=== PATIENT | male | born 1990 | race Hispanic/Latino ===

== ENCOUNTER 2016-10-13 19:45 | Emergency (ER) | payer SELFPAY ==
[2016-10-13 19:57] VITALS: BMI 35.4
[2016-10-13 20:01] VITALS: RESP 18; TEMP 98.7
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
[2016-10-13] MEDS ORDERED: Rabies Immune Globulin 150 INTLU/ML VIAL IM ONE (20:25)
[2016-10-13] MEDS ORDERED: Rabies Vaccine 2.5 U VIAL IM ONE (20:27)
[2016-10-13] MEDS ORDERED: TDAP Vaccine 0.5 mL Syr IM ONE (20:28)
[2016-10-13] MEDS ORDERED: Amoxicillin-Clav 875-125 mg Tab PO STA (20:28)
[2016-10-13 22:22] VITALS: BP 127/74; PULSE 71; O2SAT 100
[2016-10-14 13:06] LABS: HEPATITIS B SURFACE AG NEGATIVE (NEGATIVE)
[2016-10-14 13:11] LABS: HEPATITIS A IGM NEGATIVE (NEGATIVE)
[2016-10-14 13:12] LABS: HEPATITIS B CORE AB NEGATIVE (NEGATIVE)
[2016-10-14 13:24] LABS: HEPATITIS C ANTIBODY NEGATIVE (NEGATIVE)
== END 2016-10-13 22:05 | disposition home or self-care (01) ==
LOC: ED 19:45
DX: S51.851A Open bite of right forearm, initial encounter (principal); W54.0XXA Bitten by dog, initial encounter; Y93.01 Activity, walking, marching and hiking; Y92.830 Public park as the place of occurrence of the external cause; Z23 Encounter for immunization

== ENCOUNTER 2017-07-10 16:02 | Inpatient (IN) | payer BC ==
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
[2017-07-10 16:26] VITALS: BMI 34.4
[2017-07-10 16:55] LABS: BASO # 0.03 K/mm3 (0.0-2.0); BASO % 0.3 % (0.0-3.0); EOS # 0.5 (0.0-0.7); EOS % 4.4 % (1.5-5.0); GRAN # 4.85 (1.4-6.5); GRAN % 45.9 % (50.0-68.0); HEMOGLOBIN 15.7 g/dL (14.0-18.0); LYMPH # 4.4 (1.2-3.4); LYMPH % 41.3 % (22.0-35.0); MEAN CELL VOLUME 96.2 fl (80.0-105.0); MEAN CORPUSCULAR HGB CONC 34.3 g/dl (31.0-37.0); MEAN PLATELET VOLUME 9.7 fl (7.0-11.0); MONO # 0.9 (0.1-0.6); MONO % 8.1 % (1.0-6.0); RBC 4.76 10^6/uL (3.5-6.1); RED CELL DISTRIBUTION WIDTH 12.7 % (11.5-14.5); WHITE BLOOD COUNT 10.6 10^3/ul (4.5-11.0)
[2017-07-10 17:14] LABS: ALB/GLOB RATIO 1.3 (1.1-1.8); ALBUMIN 4.7 g/dL (3.0-4.8); ALT/SGPT 51 U/L (7-56); AST/SGOT 36 U/L (17-59); BLOOD UREA NITROGEN 8 mg/dL (7-21); CALCIUM 9.6 mg/dL (8.4-10.5); GFR AFRICAN-AMERICAN > 60; GFR NON-AFRICAN AMERICAN > 60
[2017-07-10 17:16] LABS: ACETAMINOPHEN < 10.0 ug/ml (10.0-20.0); SALICYLATE < 1 mg/dL (2.0-20.0)
--- NOTE | 2017-07-10 17:41 | RAD ---
HISTORY: Overdose. COMPARISON: No prior. FINDINGS: LUNGS: No active pulmonary disease. PLEURA: No significant pleural effusion identified, no pneumothorax apparent. CARDIOVASCULAR: Normal. OSSEOUS STRUCTURES: No significant abnormalities. VISUALIZED UPPER ABDOMEN: Normal. OTHER FINDINGS: None. IMPRESSION: No active disease.
--- NOTE | 2017-07-10 19:18 | CARD ---
APPROVED REPORT EKG Measurement Heart [id number] <Conclusion> Normal sinus rhythm Incomplete right bundle branch block Borderline ECG
[2017-07-10] MEDS ORDERED: Sodium Chloride 0.9% 1,000 ML IV ONE (20:16)
[2017-07-10] MEDS ORDERED: Naloxone 0.4 mg/ml Inj (Adult) IVP STA ×3 (21:24→21:36)
[2017-07-10] MEDS ORDERED: Naloxone 0.4 mg/ml Inj (Adult) ONE (21:30)
[2017-07-10] MEDS ORDERED: Naloxone HCl 2mg/2ml syr IVP STA (21:42)
[2017-07-10] MEDS ORDERED: Succinylcholine 200 mg/10 ml Inj IV ONE (21:43)
[2017-07-10] MEDS ORDERED: Etomidate 20 mg/10ml Inj IV ONE (21:43)
[2017-07-10] MEDS ORDERED: Propofol 10 mg/ml 1,000 MG/100 ML VIAL ONE (21:49)
[2017-07-10] MEDS ORDERED: Etomidate 20 mg/10ml Inj IVP STA (21:51)
[2017-07-10] MEDS ORDERED: Succinylcholine 200 mg/10 ml Inj IV STA (21:52)
[2017-07-10] MEDS ORDERED: Propofol 10 mg/ml 1,000 MG/100 ML VIAL IV PRN (21:54)
[2017-07-10] MEDS ORDERED: Propofol 10 mg/ml Inj (20 ML) IVP ONE (21:54)
[2017-07-10 22:15] LABS: URINE BILIRUBIN NEGATIVE (NEGATIVE); URINE BLOOD NEGATIVE (NEGATIVE); URINE GLUCOSE (UA) NEGATIVE (NEGATIVE); URINE LEUKOCYTE ESTERASE TRACE Leu/uL (NEGATIVE); URINE PROTEIN NEGATIVE mg/dL (<30 mg/dL); URINE UROBILINOGEN 0.2 E.U./dL (<1 E.U./dL)
--- NOTE | 2017-07-10 22:17 | CP.PCM.CON ---
<Medina Latham - Last Filed: 07/10/17 22:59> History of Present Illness - History of Present Illness History of Present Illness: CC: Overdose Patient is a 26 y/o male with unknown past medical history brought in by ambulance due to medication overdose. Patient is currently intubated and sedated thus unable to obtain history, and family is currently not at the bed side. As per ER physician and nurse, patient was coherent and a&ox3 at presentation. Patient admitted to taking 5-10 pills of oxycodone, denied suicidal or homicidal ideation. As per ER chart, patient's mother stated patient has psych history and she though patient took multiple pills in attempt to commit suicidal. Patient was awaiting psych eval, when he started to deteriorate, requiring multiple doses of narcan. Patient was eventually intubated and sedated for airway protection. Unable to obtain ROS due to mental status. PMHx/PSHx/FMHx/Social/ home meds and allergy: all known due to mentation. Review of Systems - Review of Systems Systems not reviewed;Unavailable: Intubated Past Patient History - Infectious Disease Hx of Infectious Diseases: None - Tetanus Immunizations Tetanus Immunization: Unknown - Past Medical History & Family History Past Medical History?: Yes - Past Social History Smoking Status: Light Smoker < 10 Cigarettes Daily Home Situation {Lives}: With Family - CARDIAC Hx Cardiac Disorders: No - PULMONARY Hx Respiratory Disorders: No - NEUROLOGICAL Hx Neurological Disorder: No - HEENT Hx HEENT Problems: No - RENAL Hx Chronic Kidney Disease: No - ENDOCRINE/METABOLIC Hx Endocrine Disorders: No - HEMATOLOGICAL/ONCOLOGICAL Hx Blood Disorders: No - INTEGUMENTARY Hx Dermatological Problems: No - MUSCULOSKELETAL/RHEUMATOLOGICAL Hx Arthritis: Yes - GASTROINTESTINAL Hx Gastrointestinal Disorders: No - GENITOURINARY/GYNECOLOGICAL Hx Genitourinary Disorders: No - PSYCHIATRIC Hx Depression: No Hx Emotional Abuse: No Hx Physical Abuse: No Hx Substance Use: Yes (Pills) - SURGICAL HISTORY Hx Orthopedic Surgery: Yes (R ANKLE) - ANESTHESIA Hx Anesthesia: Yes Hx Anesthesia Reactions: No Hx Malignant Hyperthermia: No Meds Allergies/Adverse Reactions: Allergies Allergy/AdvReac Type Severity Reaction Status Date / Time clarithromycin [From Biaxin] Allergy ANAPHYLAXIS Verified 07/10/17 16:19 - Medications Medications: Current Medications Propofol (Diprivan) 1,000 mg in 100 mls @ 3.266 mls/hr IV .Q24H PRN; Protocol; 5 MCG/KG/MIN PRN Reason: TITRATE PER MD ORDER Last Admin: 07/10/17 22:00 Dose: 3.266 mls/hr Sodium Chloride (Sodium Chloride 0.9%) 100 mls @ 150 mls/hr IV .Q40M [facility] Pantoprazole Sodium (Protonix Inj) 40 mg IVP DAILY [facility] Physical Exam - Constitutional Appears: No Acute Distress, Older Than Stated Age - Head Exam Head Exam: ATRAUMATIC, NORMAL INSPECTION, NORMOCEPHALIC - Eye Exam Eye Exam: Normal appearance, PERRL. absent: Scleral icterus - ENT Exam ENT Exam: Mucous Membranes Moist Additional comments: + ETT - Neck Exam Neck exam: Positive for: Normal Inspection - Respiratory Exam Respiratory Exam: Clear to Auscultation Bilateral, NORMAL BREATHING PATTERN. absent: Rales, Rhonchi, Wheezes, Respiratory Distress, Stridor - Cardiovascular Exam Cardiovascular Exam: Tachycardia, REGULAR RHYTHM, RRR, +S1, +S2. absent: Gallop , JVD, Rubs, Systolic Murmur - GI/Abdominal Exam GI & Abdominal Exam: Normal Bowel Sounds, Soft. absent: Distended, Firm, Guarding, Rebound, Rigid, Tenderness - Extremities Exam Extremities exam: Positive for: normal inspection. Negative for: pedal edema, tenderness - Neurological Exam Additional comments: Intubated and sedated. - Skin Skin Exam: Abrasion, Dry, Warm Results - Vital Signs Recent Vital Signs: Last Vital Signs Temp 97.8 F 07/10/17 18:58 Pulse 112 H 07/10/17 18:58 Resp 14 07/10/17 18:58 BP 122/60 07/10/17 18:58 Pulse Ox 94 L 07/10/17 18:58 - Labs Result Diagrams: 07/10/17 16:15 07/10/17 16:15 - EKG Data EKG Interpreted by: Myself EKG shows normal: Sinus rhythm Rate: Tachycardia (with RBBB) Assessment & Plan - Assessment and Plan (Free Text) Assessment: 26 y/o with unknown past medical history presented s/p medications overdose, presumably oxycodone, requiring multiple doses of narcan. Patient was intubated and sedated for airway protection. Plan: Neuro: intubated and sedated for airway protection s/p presumably opioid overdose, s/p multiple doses of narcan. follow up with [facility] poison control to be contacted on propofol for sedation Psych- possible medication over dose in attempt to commit suicide. Patient doesn't need 1:1 at this time due to intubation/sedation status. psych is consulted pending urine tox screen Pulm: s/p intubated for airway protection pulm toileting, gi prophylaxis, head of bed above 35 degrees, protective lung ventilation strategies. Will obtain a stat abg and adjust vent setting prn. Cardac: no known cardiac history. Maintain MAP above 65%. ID: no signs of sepsis at this time. ua ordered. Renal: cpk normal, renal function normal. repeat CPK in the morning. Sarkar catheter in place due to immobility. IV maintenance Blood alcohol and etoh normal, urine drug screen pending. Endo: hyperglycemia- will add insulin sliding scale, and fingerstick q6. GI: npo for now protonix for gi prophylaxis Heme: h/h/ stable, will continue to monitor. 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 Patient seen, examined and case discussed with Dr Valencia. - Date & Time Date: 07/10/17 Time: 23:00 <Annie YOO,Jesus - Last Filed: 07/11/17 09:09> Meds - Medications Medications: Current Medications Albuterol/Ipratropium (Duoneb 3 Mg/0.5 Mg (3 Ml) Ud) 3 ml IH Q6H PRN PRN Reason: Shortness of Breath Dexamethasone (Decadron Inj) 4 mg IVP Q6 [facility] Propofol (Diprivan) 1,000 mg in 100 mls @ 3.266 mls/hr IV .Q24H PRN; Protocol; 5 MCG/KG/MIN PRN Reason: TITRATE PER MD ORDER Last Titration: 07/11/17 02:00 Dose: 5 mcg/kg/min, 3.266 mls/hr Sodium Chloride (Sodium Chloride 0.9%) 1,000 mls @ 150 mls/hr IV .Q6H40M [facility] Last Admin: 07/11/17 01:00 Dose: 150 mls/hr Dextrose (Dextrose 10% In Water) 500 mls @ 50 mls/hr IV .Q10H [facility] Last Admin: 07/11/17 07:34 Dose: 50 mls/hr Pantoprazole Sodium (Protonix Inj) 40 mg IVP DAILY [facility] Results - Vital Signs Recent Vital Signs: Last Vital Signs Temp 97.6 F 07/11/17 00:12 Pulse 74 07/11/17 06:00 Resp 16 07/11/17 03:48 BP 104/64 07/11/17 02:00 Pulse Ox 99 07/11/17 03:48 - Labs Result Diagrams: 07/11/17 06:05 07/11/17 06:05 Labs: Laboratory Results - last 24 hr 07/10/17 07/10/17 07/11/17 21:40 21:40 03:17 WBC RBC Hgb Hct MCV MCH MCHC RDW Plt Count MPV Gran % Lymph % (Auto) Kleberg % (Auto) Eos % (Auto) Baso % (Auto) Gran # Lymph # (Auto) Kleberg # (Auto) Eos # (Auto) Baso # (Auto) pCO2 37 pO2 116.0 H HCO3 21.4 ABG pH 7.37 ABG Total CO2 22.5 ABG O2 Saturation 99.3 H ABG O2 Content 16.3 ABG Base Excess -3.4 L ABG Hemoglobin 12.0 ABG Carboxyhemoglobin 2.8 H POC ABG HHb (Measured) 0.7 ABG Methemoglobin 1.0 ABG O2 Capacity 16.4 Hgb O2 Saturation 95.4 FiO2 40.0 Sodium Potassium Chloride Carbon Dioxide Anion Gap BUN Creatinine Est GFR ( Amer) Est GFR (Non-Af Amer) POC Glucose (mg/dL) Random Glucose Calcium Phosphorus Magnesium Total Bilirubin AST ALT Alkaline Phosphatase Total Creatine Kinase Total Protein Albumin Globulin Albumin/Globulin Ratio Urine Color Yellow Urine Appearance Clear Urine pH 6.0 Ur Specific Andes 1.010 Urine Protein Negative Urine Glucose (UA) Negative Urine Ketones Negative Urine Blood Negative Urine Nitrate Negative Urine Bilirubin Negative Urine Urobilinogen 0.2 Ur Leukocyte Esterase Trace H Urine RBC 0 - 2 Urine WBC 0 - 2 Ur Epithelial Cells 0 - 2 Urine Opiates Screen Negative Urine Methadone Screen Positive H Ur Barbiturates Screen Negative Ur Phencyclidine Scrn Negative Ur Amphetamines Screen Negative U Benzodiazepines Scrn Positive U Oth Cocaine Metabols Negative U Cannabinoids Screen Positive H 07/11/17 07/11/17 07/11/17 03:32 04:28 06:05 WBC 9.9 RBC 3.94 Hgb 12.8 L D Hct 37.9 L MCV 96.2 MCH 32.5 MCHC 33.8 RDW 12.9 Plt Count 228 MPV 9.5 Gran % 63.0 Lymph % (Auto) 25.6 Kleberg % (Auto) 9.3 H Eos % (Auto) 1.9 Baso % (Auto) 0.2 Gran # 6.20 Lymph # (Auto) 2.5 Kleberg # (Auto) 0.9 H Eos # (Auto) 0.2 Baso # (Auto) 0.02 pCO2 pO2 HCO3 ABG pH ABG Total CO2 ABG O2 Saturation ABG O2 Content ABG Base Excess ABG Hemoglobin ABG Carboxyhemoglobin POC ABG HHb (Measured) ABG Methemoglobin ABG O2 Capacity Hgb O2 Saturation FiO2 Sodium Potassium Chloride Carbon Dioxide Anion Gap BUN Creatinine Est GFR ( Amer) Est GFR (Non-Af Amer) POC Glucose (mg/dL) 63 L 98 Random Glucose Calcium Phosphorus Magnesium Total Bilirubin AST ALT Alkaline Phosphatase Total Creatine Kinase Total Protein Albumin Globulin Albumin/Globulin Ratio Urine Color Urine Appearance Urine pH Ur Specific Andes Urine Protein Urine Glucose (UA) Urine Ketones Urine Blood Urine Nitrate Urine Bilirubin Urine Urobilinogen Ur Leukocyte Esterase Urine RBC Urine WBC Ur Epithelial Cells Urine Opiates Screen Urine Methadone Screen Ur Barbiturates Screen Ur Phencyclidine Scrn Ur Amphetamines Screen U Benzodiazepines Scrn U Oth Cocaine Metabols U Cannabinoids Screen 07/11/17 06:05 WBC RBC Hgb Hct MCV MCH MCHC RDW Plt Count MPV Gran % Lymph % (Auto) Kleberg % (Auto) Eos % (Auto) Baso % (Auto) Gran # Lymph # (Auto) Kleberg # (Auto) Eos # (Auto) Baso # (Auto) pCO2 pO2 HCO3 ABG pH ABG Total CO2 ABG O2 Saturation ABG O2 Content ABG Base Excess ABG Hemoglobin ABG Carboxyhemoglobin POC ABG HHb (Measured) ABG Methemoglobin ABG O2 Capacity Hgb O2 Saturation FiO2 Sodium 138 Potassium 3.7 Chloride 107 Carbon Dioxide 23 Anion Gap 12 BUN 7 Creatinine 0.7 L Est GFR ( Amer) > 60 Est GFR (Non-Af Amer) > 60 POC Glucose (mg/dL) Random Glucose 64 L Calcium 8.4 Phosphorus 2.4 L Magnesium 1.9 Total Bilirubin 0.6 AST 26 ALT 40 Alkaline Phosphatase 57 Total Creatine Kinase 114 Total Protein 6.4 Albumin 3.4 Globulin 3.0 Albumin/Globulin Ratio 1.1 Urine Color Urine Appearance Urine pH Ur Specific And[place] Urine Protein Urine Glucose (UA) Urine Ketones Urine Blood Urine Nitrate Urine Bilirubin Urine Urobilinogen Ur Leukocyte Esterase Urine RBC Urine WBC Ur Epithelial Cells Urine Opiates Screen Urine Methadone Screen Ur Barbiturates Screen Ur Phencyclidine Scrn Ur Amphetamines Screen U Benzodiazepines Scrn U Oth Cocaine Metabols U Cannabinoids Screen Attending/Attestation - Attestation I have personally seen and examined this patient.: Yes I have fully participated in the care of the patient.: Yes I have reviewed all pertinent clinical information: Yes Notes (Text): -I agree with the above ICU consult note completed by the resident physician with the following additions and/or changes: -The patient is a 26 year old man with unknown past medical history who reportedly intentionally attempted to overdose on Methadone and was subsequently BIBA as a result. In the ED, the patient was requiring repeat doses of Narcan and ultimately was intubated for airway protection. Of note, details of history are limited and obtained from ED and RN notes. Aggressive IVF s will be started, urine drug screen, Acetaminophen and Salicylate levels will be obtained. A psych consult has also been placed. Once the patient is extubated , he will require 1:1 monitoring due to concerns for possible suicidal ideations. Critical Care Time Spent: 90-120 minutes
[2017-07-10 22:23] LABS: URINE APPEARANCE CLEAR (CLEAR); URINE COLOR YELLOW (YELLOW)
[2017-07-10 22:28] LABS: URINE EPITHELIAL CELLS 0 - 2 /hpf (0-5); URINE RBC 0 - 2 /hpf (0-2); URINE WBC 0 - 2 /hpf (0-6)
[2017-07-10 22:39] LABS: BARBITURATES, UR NEGATIVE (NEGATIVE); BENZODIAZEPINES, UR POSITIVE (NEGATIVE); OPIATES, UR NEGATIVE (NEGATIVE); PHENCYCLIDINE, UR NEGATIVE (NEGATIVE)
[2017-07-11] MEDS: Sodium Chloride 0.9% 1,000 ML IV SCH ×2 (01:00→15:12)
[2017-07-11 03:21] LABS: ARTERIAL BLOOD GAS HCO3 21.4 mmol/L (21-28); ARTERIAL BLOOD GAS O2 CAPACITY 16.4 mL/dl (16-24); ARTERIAL BLOOD GAS O2 CONTENT 16.3 ML/dl (15-23); ARTERIAL BLOOD GAS O2 SAT 99.3 % (95-98); ARTERIAL BLOOD GAS PCO2 37 mm/Hg (35-45); ARTERIAL BLOOD GAS PH 7.37 (7.35-7.45); ARTERIAL BLOOD GAS TCO2 22.5 mmol.L (22-28)
[2017-07-11] MEDS ORDERED: Dextrose 50% SYRINGE Inj (50 ml) IVP ONE (03:34)
[2017-07-11 06:48] LABS: BASO # 0.02 K/mm3 (0.0-2.0); BASO % 0.2 % (0.0-3.0); EOS # 0.2 (0.0-0.7); EOS % 1.9 % (1.5-5.0); GRAN # 6.2 (1.4-6.5); LYMPH # 2.5 (1.2-3.4); LYMPH % 25.6 % (22.0-35.0); MEAN CELL VOLUME 96.2 fl (80.0-105.0); MEAN CORPUSCULAR HEMOGLOBIN 32.5 pg (25.0-35.0); MEAN CORPUSCULAR HGB CONC 33.8 g/dl (31.0-37.0); MEAN PLATELET VOLUME 9.5 fl (7.0-11.0); MONO # 0.9 (0.1-0.6); MONO % 9.3 % (1.0-6.0); RBC 3.94 10^6/uL (3.5-6.1); RED CELL DISTRIBUTION WIDTH 12.9 % (11.5-14.5); WHITE BLOOD COUNT 9.9 10^3/ul (4.5-11.0)
[2017-07-11 07:12] LABS: ALB/GLOB RATIO 1.1 (1.1-1.8); ALBUMIN 3.4 g/dL (3.0-4.8); ALT/SGPT 40 U/L (7-56); AST/SGOT 26 U/L (17-59); BLOOD UREA NITROGEN 7 mg/dL (7-21); CALCIUM 8.4 mg/dL (8.4-10.5); GFR AFRICAN-AMERICAN > 60; GFR NON-AFRICAN AMERICAN > 60
[2017-07-11 07:27] LABS: HEMOGLOBIN 12.8 g/dL (14.0-18.0)
[2017-07-11] MEDS ORDERED: Insulin Reg-LOW-Coverage SC SCH (07:30)
--- NOTE | 2017-07-11 08:04 | RAD ---
HISTORY: post intubation COMPARISON: Frontal chest radiograph 07/10/2017. FINDINGS: Endotracheal tube is in place terminating approximately 5 cm above the ahmet in the plane of the trachea. LUNGS: No definitive infiltrate is appreciate however restrained motion degrades quality this exam somewhat. PLEURA: No significant pleural effusion identified, no pneumothorax apparent. CARDIOVASCULAR: Cardiac silhouette appears stable with no definite pulmonary venous congestion pattern appreciate this time. OSSEOUS STRUCTURES: No significant abnormalities. VISUALIZED UPPER ABDOMEN: Normal. OTHER FINDINGS: None. IMPRESSION: Interval endotracheal intubation, good position. No interval infiltrate pleural effusion or pneumothorax is appreciable bilaterally.
[2017-07-11] MEDS ORDERED: Albuterol-Ipratrop 3 mg / 0.5 (3 ml) UD IH PRN (08:36)
[2017-07-11] MEDS ORDERED: Albuterol-Ipratrop 3 mg / 0.5 (3 ml) UD IH STA (08:36)
[2017-07-11] MEDS ORDERED: Racepinephrine 2.25% Inhal Soln 0.5 ML UD IH ONE (08:39)
[2017-07-11] MEDS: Dexamethasone 4 mg/1 ml IVP SCH ×4 (09:17→23:22)
[2017-07-11 11:01] LABS: ARTERIAL BLOOD GAS HCO3 25.1 mmol/L (21-28); ARTERIAL BLOOD GAS O2 CONTENT 17.9 ML/dl (15-23); ARTERIAL BLOOD GAS O2 SAT 99.4 % (95-98); ARTERIAL BLOOD GAS PCO2 60 mm/Hg (35-45); ARTERIAL BLOOD GAS PH 7.23 (7.35-7.45); ARTERIAL BLOOD GAS TCO2 26.9 mmol.L (22-28)
--- NOTE | 2017-07-11 11:09 | CP.CCUPN ---
<Thaddeus Magallon - Last Filed: 07/11/17 11:10> CCU Subjective - Physician Review Subjective (Free Text): Patient seen and examined bedside. Patient was extubated and opening eyes and responding to questions appropriately. Still lethargic and drowsy. No acute issues overnight. No current complaints. 07/11/17 11:06 CCU Objective - Vital Signs / Intake & Output Intake and Output (Last 8hrs): Intake & Output 07/10/17 07/11/17 07/11/17 22:59 06:59 14:59 Intake Total 1072 Output Total 450 Balance 622 Weight 262 lb 2 oz Intake: IV 1072 Right Antecubital 1050 Output: Urine 450 2-way Urethral 450 Other: Voiding Method Indwelling Catheter - Physical Exam Head: Positive for: Atraumatic, Normocephalic Pupils: Positive for: PERRL Conjunctiva: Positive for: Normal Mouth: Positive for: Moist Mucous Membranes Pharnyx: Negative for: ERYTHEMA, EXUDATE, TONSILS ENLARGED Respiratory/Chest: Positive for: Clear to Auscultation, Good Air Exchange. Negative for: Respiratory Distress, Accessory Muscle Use Cardiovascular: Positive for: Regular Rate and Rhythm, Normal S1, S2. Negative for: Murmurs Abdomen: Negative for: Tenderness, Distention, Peritoneal Signs, Rebound, Guarding Upper Extremity: Positive for: Normal Inspection. Negative for: Cyanosis, Edema Lower Extremity: Positive for: Normal Inspection. Negative for: Edema Neurological: Positive for: Motor Func Grossly Intact, Normal Sensory Function, Other (lethargic, drowsy ) Skin: Positive for: Warm, Dry, Normal Color. Negative for: Rashes Psychiatric: Positive for: Alert, Oriented x 3, Normal Insight, Normal Concentration, Lethargic. Negative for: Anxious, Agitated, Suicidal Ideation, Homicidal Ideation, Delusional, Hallucinations - Medications Active Medications: Active Medications Generic Name Dose Route Start Last Admin Trade Name Freq PRN Reason Stop Dose Admin Albuterol/Ipratropium 3 ml 07/11/17 08:36 Duoneb 3 Mg/0.5 Mg (3 Ml) Ud IH Q6H PRN Shortness of Breath Dexamethasone 4 mg 07/11/17 12:00 07/11/17 09:17 Decadron Inj IVP 4 mg Q6 BENSON Administration Sodium Chloride 1,000 mls @ 150 mls/hr 07/10/17 22:30 07/11/17 01:00 Sodium Chloride 0.9% IV 150 mls/hr .Q6H40M BENSON Administration Dextrose 500 mls @ 100 mls/hr 07/11/17 09:15 Dextrose 10% In Water IV .Q5H BENSON Lactated Ringer's 1,000 mls @ 999 mls/hr 07/11/17 11:15 Lactated Ringer's IV .Q1H1M BENSON Pantoprazole Sodium 40 mg 07/11/17 10:00 07/11/17 09:33 Protonix Inj IVP 40 mg DAILY BENSON Administration - Patient Studies Lab Studies: Lab Studies 07/11/17 07/11/17 07/11/17 Range/Units 10:50 06:05 06:05 WBC 9.9 (4.5-11.0) 10^3/ul RBC 3.94 (3.5-6.1) 10^6/uL Hgb 12.8 L D (14.0-18.0) g/dL Hct 37.9 L (42.0-52.0) % MCV 96.2 (80.0-105.0) fl MCH 32.5 (25.0-35.0) pg MCHC 33.8 (31.0-37.0) g/dl RDW 12.9 (11.5-14.5) % Plt Count 228 (120.0-450.0) 10^3/uL MPV 9.5 (7.0-11.0) fl Gran % 63.0 (50.0-68.0) % Lymph % (Auto) 25.6 (22.0-35.0) % [place] % (Auto) 9.3 H (1.0-6.0) % Eos % (Auto) 1.9 (1.5-5.0) % Baso % (Auto) 0.2 (0.0-3.0) % Gran # 6.20 (1.4-6.5) Lymph # (Auto) 2.5 (1.2-3.4) [place] # (Auto) 0.9 H (0.1-0.6) Eos # (Auto) 0.2 (0.0-0.7) Baso # (Auto) 0.02 (0.0-2.0) K/mm3 pCO2 60 H (35-45) mm/Hg pO2 135.0 H (80-100) mm/Hg HCO3 25.1 (21-28) mmol/L ABG pH 7.23 L (7.35-7.45) ABG Total CO2 26.9 (22-28) mmol.L ABG O2 Saturation 99.4 H (95-98) % ABG O2 Content 17.9 (15-23) ML/dl ABG Base Excess -3.4 L (-2.0-3.0) mmol/L ABG Hemoglobin 13.0 (11.7-17.4) g/dL ABG Carboxyhemoglobin 2.1 H (0.5-1.5) % POC ABG HHb (Measured) 0.6 (0-5) % ABG Methemoglobin 0.4 (0.0-3.0) % ABG O2 Capacity 18.0 (16-24) mL/dl Hgb O2 Saturation 96.9 (95.0-98.0) % FiO2 60.0 % Sodium 138 (132-148) mmol/L Potassium 3.7 (3.6-5.0) mmol/L Chloride 107 (98-107) mmol/L Carbon Dioxide 23 (21-33) mmol/L Anion Gap 12 (10-20) BUN 7 (7-21) mg/dL Creatinine 0.7 L (0.8-1.5) mg/dl Est GFR ( Amer) > 60 Est GFR (Non-Af Amer) > 60 POC Glucose (mg/dL) (65-110) mg/dL Random Glucose 64 L (70-110) mg/dL Calcium 8.4 (8.4-10.5) mg/dL Phosphorus 2.4 L (2.5-4.5) mg/dL Magnesium 1.9 (1.7-2.2) mg/dL Total Bilirubin 0.6 (0.2-1.3) mg/dL AST 26 (17-59) U/L ALT 40 (7-56) U/L Alkaline Phosphatase 57 (38-126) U/L Total Creatine Kinase 114 (35-230) U/L Total Protein 6.4 (5.8-8.3) g/dL Albumin 3.4 (3.0-4.8) g/dL Globulin 3.0 gm/dL Albumin/Globulin Ratio 1.1 (1.1-1.8) Urine Color (YELLOW) Urine Appearance (CLEAR) Urine pH (4.7-8.0) Ur Specific [place] (1.005-1.035) Urine Protein (<30 mg/dL) mg/dL Urine Glucose (UA) (NEGATIVE) mg/dL Urine Ketones (NEGATIVE) mg/dL Urine Blood (NEGATIVE) Urine Nitrate (NEGATIVE) Urine Bilirubin (NEGATIVE) Urine Urobilinogen (<1 E.U./dL) E.U./dL Ur Leukocyte Esterase (NEGATIVE) Portia/uL Urine RBC (0-2) /hpf Urine WBC (0-6) /hpf Ur Epithelial Cells (0-5) /hpf Urine Opiates Screen (NEGATIVE) Urine Methadone Screen (NEGATIVE) Ur Barbiturates Screen (NEGATIVE) Ur Phencyclidine Scrn (NEGATIVE) Ur Amphetamines Screen (NEGATIVE) U Benzodiazepines Scrn (NEGATIVE) U Oth Cocaine Metabols (NEGATIVE) U Cannabinoids Screen (NEGATIVE) 07/11/17 07/11/17 07/11/17 Range/Units 04:28 03:32 03:17 WBC (4.5-11.0) 10^3/ul RBC (3.5-6.1) 10^6/uL Hgb (14.0-18.0) g/dL Hct (42.0-52.0) % MCV (80.0-105.0) fl MCH (25.0-35.0) pg MCHC (31.0-37.0) g/dl RDW (11.5-14.5) % Plt Count (120.0-450.0) 10^3/uL MPV (7.0-11.0) fl Gran % (50.0-68.0) % Lymph % (Auto) (22.0-35.0) % [place] % (Auto) (1.0-6.0) % Eos % (Auto) (1.5-5.0) % Baso % (Auto) (0.0-3.0) % Gran # (1.4-6.5) Lymph # (Auto) (1.2-3.4) [place] # (Auto) (0.1-0.6) Eos # (Auto) (0.0-0.7) Baso # (Auto) (0.0-2.0) K/mm3 pCO2 37 (35-45) mm/Hg pO2 116.0 H (80-100) mm/Hg HCO3 21.4 (21-28) mmol/L ABG pH 7.37 (7.35-7.45) ABG Total CO2 22.5 (22-28) mmol.L ABG O2 Saturation 99.3 H (95-98) % ABG O2 Content 16.3 (15-23) ML/dl ABG Base Excess -3.4 L (-2.0-3.0) mmol/L ABG Hemoglobin 12.0 (11.7-17.4) g/dL ABG Carboxyhemoglobin 2.8 H (0.5-1.5) % POC ABG HHb (Measured) 0.7 (0-5) % ABG Methemoglobin 1.0 (0.0-3.0) % ABG O2 Capacity 16.4 (16-24) mL/dl Hgb O2 Saturation 95.4 (95.0-98.0) % FiO2 40.0 % Sodium (132-148) mmol/L Potassium (3.6-5.0) mmol/L Chloride (98-107) mmol/L Carbon Dioxide (21-33) mmol/L Anion Gap (10-20) BUN (7-21) mg/dL Creatinine (0.8-1.5) mg/dl Est GFR ( Amer) Est GFR (Non-Af Amer) POC Glucose (mg/dL) 98 63 L (65-110) mg/dL Random Glucose (70-110) mg/dL Calcium (8.4-10.5) mg/dL Phosphorus (2.5-4.5) mg/dL Magnesium (1.7-2.2) mg/dL Total Bilirubin (0.2-1.3) mg/dL AST (17-59) U/L ALT (7-56) U/L Alkaline Phosphatase (38-126) U/L Total Creatine Kinase (35-230) U/L Total Protein (5.8-8.3) g/dL Albumin (3.0-4.8) g/dL Globulin gm/dL Albumin/Globulin Ratio (1.1-1.8) Urine Color (YELLOW) Urine Appearance (CLEAR) Urine pH (4.7-8.0) Ur Specific [place] (1.005-1.035) Urine Protein (<30 mg/dL) mg/dL Urine Glucose (UA) (NEGATIVE) mg/dL Urine Ketones (NEGATIVE) mg/dL Urine Blood (NEGATIVE) Urine Nitrate (NEGATIVE) Urine Bilirubin (NEGATIVE) Urine Urobilinogen (<1 E.U./dL) E.U./dL Ur Leukocyte Esterase (NEGATIVE) Portia/uL Urine RBC (0-2) /hpf Urine WBC (0-6) /hpf Ur Epithelial Cells (0-5) /hpf Urine Opiates Screen (NEGATIVE) Urine Methadone Screen (NEGATIVE) Ur Barbiturates Screen (NEGATIVE) Ur Phencyclidine Scrn (NEGATIVE) Ur Amphetamines Screen (NEGATIVE) U Benzodiazepines Scrn (NEGATIVE) U Oth Cocaine Metabols (NEGATIVE) U Cannabinoids Screen (NEGATIVE) 07/10/17 07/10/17 Range/Units 21:40 21:40 WBC (4.5-11.0) 10^3/ul RBC (3.5-6.1) 10^6/uL Hgb (14.0-18.0) g/dL Hct (42.0-52.0) % MCV (80.0-105.0) fl MCH (25.0-35.0) pg MCHC (31.0-37.0) g/dl RDW (11.5-14.5) % Plt Count (120.0-450.0) 10^3/uL MPV (7.0-11.0) fl Gran % (50.0-68.0) % Lymph % (Auto) (22.0-35.0) % [place] % (Auto) (1.0-6.0) % Eos % (Auto) (1.5-5.0) % Baso % (Auto) (0.0-3.0) % Gran # (1.4-6.5) Lymph # (Auto) (1.2-3.4) [place] # (Auto) (0.1-0.6) Eos # (Auto) (0.0-0.7) Baso # (Auto) (0.0-2.0) K/mm3 pCO2 (35-45) mm/Hg pO2 (80-100) mm/Hg HCO3 (21-28) mmol/L ABG pH (7.35-7.45) ABG Total CO2 (22-28) mmol.L ABG O2 Saturation (95-98) % ABG O2 Content (15-23) ML/dl ABG Base Excess (-2.0-3.0) mmol/L ABG Hemoglobin (11.7-17.4) g/dL ABG Carboxyhemoglobin (0.5-1.5) % POC ABG HHb (Measured) (0-5) % ABG Methemoglobin (0.0-3.0) % ABG O2 Capacity (16-24) mL/dl Hgb O2 Saturation (95.0-98.0) % FiO2 % Sodium (132-148) mmol/L Potassium (3.6-5.0) mmol/L Chloride (98-107) mmol/L Carbon Dioxide (21-33) mmol/L Anion Gap (10-20) BUN (7-21) mg/dL Creatinine (0.8-1.5) mg/dl Est GFR ( Amer) Est GFR (Non-Af Amer) POC Glucose (mg/dL) (65-110) mg/dL Random Glucose (70-110) mg/dL Calcium (8.4-10.5) mg/dL Phosphorus (2.5-4.5) mg/dL Magnesium (1.7-2.2) mg/dL Total Bilirubin (0.2-1.3) mg/dL AST (17-59) U/L ALT (7-56) U/L Alkaline Phosphatase (38-126) U/L Total Creatine Kinase (35-230) U/L Total Protein (5.8-8.3) g/dL Albumin (3.0-4.8) g/dL Globulin gm/dL Albumin/Globulin Ratio (1.1-1.8) Urine Color Yellow (YELLOW) Urine Appearance Clear (CLEAR) Urine pH 6.0 (4.7-8.0) Ur Specific [place] 1.010 (1.005-1.035) Urine Protein Negative (<30 mg/dL) mg/dL Urine Glucose (UA) Negative (NEGATIVE) mg/dL Urine Ketones Negative (NEGATIVE) mg/dL Urine Blood Negative (NEGATIVE) Urine Nitrate Negative (NEGATIVE) Urine Bilirubin Negative (NEGATIVE) Urine Urobilinogen 0.2 (<1 E.U./dL) E.U./dL Ur Leukocyte Esterase Trace H (NEGATIVE) Portia/uL Urine RBC 0 - 2 (0-2) /hpf Urine WBC 0 - 2 (0-6) /hpf Ur Epithelial Cells 0 - 2 (0-5) /hpf Urine Opiates Screen Negative (NEGATIVE) Urine Methadone Screen Positive H (NEGATIVE) Ur Barbiturates Screen Negative (NEGATIVE) Ur Phencyclidine Scrn Negative (NEGATIVE) Ur Amphetamines Screen Negative (NEGATIVE) U Benzodiazepines Scrn Positive (NEGATIVE) U Oth Cocaine Metabols Negative (NEGATIVE) U Cannabinoids Screen Positive H (NEGATIVE) Laboratory Results - last 24 hr 07/10/17 07/10/17 07/11/17 21:40 21:40 03:17 WBC RBC Hgb Hct MCV MCH MCHC RDW Plt Count MPV Gran % Lymph % (Auto) [place] % (Auto) Eos % (Auto) Baso % (Auto) Gran # Lymph # (Auto) [place] # (Auto) Eos # (Auto) Baso # (Auto) pCO2 37 pO2 116.0 H HCO3 21.4 ABG pH 7.37 ABG Total CO2 22.5 ABG O2 Saturation 99.3 H ABG O2 Content 16.3 ABG Base Excess -3.4 L ABG Hemoglobin 12.0 ABG Carboxyhemoglobin 2.8 H POC ABG HHb (Measured) 0.7 ABG Methemoglobin 1.0 ABG O2 Capacity 16.4 Hgb O2 Saturation 95.4 FiO2 40.0 Sodium Potassium Chloride Carbon Dioxide Anion Gap BUN Creatinine Est GFR ( Amer) Est GFR (Non-Af Amer) POC Glucose (mg/dL) Random Glucose Calcium Phosphorus Magnesium Total Bilirubin AST ALT Alkaline Phosphatase Total Creatine Kinase Total Protein Albumin Globulin Albumin/Globulin Ratio Urine Color Yellow Urine Appearance Clear Urine pH 6.0 Ur Specific [place] 1.010 Urine Protein Negative Urine Glucose (UA) Negative Urine Ketones Negative Urine Blood Negative Urine Nitrate Negative Urine Bilirubin Negative Urine Urobilinogen 0.2 Ur Leukocyte Esterase Trace H Urine RBC 0 - 2 Urine WBC 0 - 2 Ur Epithelial Cells 0 - 2 Urine Opiates Screen Negative Urine Methadone Screen Positive H Ur Barbiturates Screen Negative Ur Phencyclidine Scrn Negative Ur Amphetamines Screen Negative U Benzodiazepines Scrn Positive U Oth Cocaine Metabols Negative U Cannabinoids Screen Positive H 07/11/17 07/11/17 07/11/17 03:32 04:28 06:05 WBC 9.9 RBC 3.94 Hgb 12.8 L D Hct 37.9 L MCV 96.2 MCH 32.5 MCHC 33.8 RDW 12.9 Plt Count 228 MPV 9.5 Gran % 63.0 Lymph % (Auto) 25.6 [place] % (Auto) 9.3 H Eos % (Auto) 1.9 Baso % (Auto) 0.2 Gran # 6.20 Lymph # (Auto) 2.5 [place] # (Auto) 0.9 H Eos # (Auto) 0.2 Baso # (Auto) 0.02 pCO2 pO2 HCO3 ABG pH ABG Total CO2 ABG O2 Saturation ABG O2 Content ABG Base Excess ABG Hemoglobin ABG Carboxyhemoglobin POC ABG HHb (Measured) ABG Methemoglobin ABG O2 Capacity Hgb O2 Saturation FiO2 Sodium Potassium Chloride Carbon Dioxide Anion Gap BUN Creatinine Est GFR ( Amer) Est GFR (Non-Af Amer) POC Glucose (mg/dL) 63 L 98 Random Glucose Calcium Phosphorus Magnesium Total Bilirubin AST ALT Alkaline Phosphatase Total Creatine Kinase Total Protein Albumin Globulin Albumin/Globulin Ratio Urine Color Urine Appearance Urine pH Ur Specific [place] Urine Protein Urine Glucose (UA) Urine Ketones Urine Blood Urine Nitrate Urine Bilirubin Urine Urobilinogen Ur Leukocyte Esterase Urine RBC Urine WBC Ur Epithelial Cells Urine Opiates Screen Urine Methadone Screen Ur Barbiturates Screen Ur Phencyclidine Scrn Ur Amphetamines Screen U Benzodiazepines Scrn U Oth Cocaine Metabols U Cannabinoids Screen 07/11/17 07/11/17 06:05 10:50 WBC RBC Hgb Hct MCV MCH MCHC RDW Plt Count MPV Gran % Lymph % (Auto) [place] % (Auto) Eos % (Auto) Baso % (Auto) Gran # Lymph # (Auto) [place] # (Auto) Eos # (Auto) Baso # (Auto) pCO2 60 H pO2 135.0 H HCO3 25.1 ABG pH 7.23 L ABG Total CO2 26.9 ABG O2 Saturation 99.4 H ABG O2 Content 17.9 ABG Base Excess -3.4 L ABG Hemoglobin 13.0 ABG Carboxyhemoglobin 2.1 H POC ABG HHb (Measured) 0.6 ABG Methemoglobin 0.4 ABG O2 Capacity 18.0 Hgb O2 Saturation 96.9 FiO2 60.0 Sodium 138 Potassium 3.7 Chloride 107 Carbon Dioxide 23 Anion Gap 12 BUN 7 Creatinine 0.7 L Est GFR ( Amer) > 60 Est GFR (Non-Af Amer) > 60 POC Glucose (mg/dL) Random Glucose 64 L Calcium 8.4 Phosphorus 2.4 L Magnesium 1.9 Total Bilirubin 0.6 AST 26 ALT 40 Alkaline Phosphatase 57 Total Creatine Kinase 114 Total Protein 6.4 Albumin 3.4 Globulin 3.0 Albumin/Globulin Ratio 1.1 Urine Color Urine Appearance Urine pH Ur Specific [place] Urine Protein Urine Glucose (UA) Urine Ketones Urine Blood Urine Nitrate Urine Bilirubin Urine Urobilinogen Ur Leukocyte Esterase Urine RBC Urine WBC Ur Epithelial Cells Urine Opiates Screen Urine Methadone Screen Ur Barbiturates Screen Ur Phencyclidine Scrn Ur Amphetamines Screen U Benzodiazepines Scrn U Oth Cocaine Metabols U Cannabinoids Screen Fingerstick Blood Sugar Results: 72 Review of Systems - Cardiovascular Cardiovascular: absent: Chest Pain, Dyspnea - Respiratory Respiratory: absent: Cough, Dyspnea - Gastrointestinal Gastrointestinal: absent: Nausea, Vomiting Critical Care Progress Note - Nutrition Nutrition: Nutrition Category Date Time Status NPO Diet [DIET] Diets 07/10/17 Dinner Ordered Assessment/Plan - Assessment and Plan (Free Text) Assessment: 26 y/o with unknown past medical history presented s/p medications overdose, presumably oxycodone, requiring multiple doses of narcan. Patient was intubated and sedated for airway protection. Extubated this morning and place don BIPAP. Plan: Neuro: lethargic, drowsy Alert, oriented x3 Psych possible medication over dose in attempt to commit suicide. 1:1psych is consulted Pulm: BIPAP ABG maintain saturation >90% decadron ENT consulted Cardiac: no known cardiac history. Maintain MAP above 65%. ID: no signs of sepsis at this time Renal: monitor lytes replenish as needed LR fluids Endo: hypoglycemic Dextrose Fingersticks Q1 GI: npo for now protonix for gi prophylaxis Heme: h/h/ stable, will continue to monitor. DVT prophylaxis: amf mechanic compressive devices. <Basilio Harp - Last Filed: 07/11/17 12:34> CCU Objective - Vital Signs / Intake & Output Vital Signs (Last 4 hours): Vital Signs Pulse 07/11/17 10:00 87 Intake and Output (Last 8hrs): Intake & Output 07/10/17 07/11/17 07/11/17 22:59 06:59 14:59 Intake Total 1072 Output Total 450 Balance 622 Weight 262 lb 2 oz Intake: IV 1072 Right Antecubital 1050 Output: Urine 450 2-way Urethral 450 Other: Voiding Method Indwelling Catheter - Medications Active Medications: Active Medications Generic Name Dose Route Start Last Admin Trade Name Freq PRN Reason Stop Dose Admin Albuterol/Ipratropium 3 ml 07/11/17 08:36 Duoneb 3 Mg/0.5 Mg (3 Ml) Ud IH Q6H PRN Shortness of Breath Dexamethasone 4 mg 07/11/17 12:00 07/11/17 12:03 Decadron Inj IVP 4 mg Q6 BENSON Administration Sodium Chloride 1,000 mls @ 150 mls/hr 07/10/17 22:30 07/11/17 01:00 Sodium Chloride 0.9% IV 150 mls/hr .Q6H40M BENSON Administration Dextrose 500 mls @ 100 mls/hr 07/11/17 09:15 Dextrose 10% In Water IV .Q5H BENSON Pantoprazole Sodium 40 mg 07/11/17 10:00 07/11/17 09:33 Protonix Inj IVP 40 mg DAILY BENSON Administration - Patient Studies Lab Studies: Lab Studies 07/11/17 07/11/17 07/11/17 Range/Units 11:53 11:11 10:50 WBC (4.5-11.0) 10^3/ul RBC (3.5-6.1) 10^6/uL Hgb (14.0-18.0) g/dL Hct (42.0-52.0) % MCV (80.0-105.0) fl MCH (25.0-35.0) pg MCHC (31.0-37.0) g/dl RDW (11.5-14.5) % Plt Count (120.0-450.0) 10^3/uL MPV (7.0-11.0) fl Gran % (50.0-68.0) % Lymph % (Auto) (22.0-35.0) % [place] % (Auto) (1.0-6.0) % Eos % (Auto) (1.5-5.0) % Baso % (Auto) (0.0-3.0) % Gran # (1.4-6.5) Lymph # (Auto) (1.2-3.4) [place] # (Auto) (0.1-0.6) Eos # (Auto) (0.0-0.7) Baso # (Auto) (0.0-2.0) K/mm3 pCO2 60 H (35-45) mm/Hg pO2 135.0 H (80-100) mm/Hg HCO3 25.1 (21-28) mmol/L ABG pH 7.23 L (7.35-7.45) ABG Total CO2 26.9 (22-28) mmol.L ABG O2 Saturation 99.4 H (95-98) % ABG O2 Content 17.9 (15-23) ML/dl ABG Base Excess -3.4 L (-2.0-3.0) mmol/L ABG Hemoglobin 13.0 (11.7-17.4) g/dL ABG Carboxyhemoglobin 2.1 H (0.5-1.5) % POC ABG HHb (Measured) 0.6 (0-5) % ABG Methemoglobin 0.4 (0.0-3.0) % ABG O2 Capacity 18.0 (16-24) mL/dl Hgb O2 Saturation 96.9 (95.0-98.0) % FiO2 60.0 % Sodium (132-148) mmol/L Potassium (3.6-5.0) mmol/L Chloride (98-107) mmol/L Carbon Dioxide (21-33) mmol/L Anion Gap (10-20) BUN (7-21) mg/dL Creatinine (0.8-1.5) mg/dl Est GFR ( Amer) Est GFR (Non-Af Amer) POC Glucose (mg/dL) 75 83 (65-110) mg/dL Random Glucose (70-110) mg/dL Calcium (8.4-10.5) mg/dL Phosphorus (2.5-4.5) mg/dL Magnesium (1.7-2.2) mg/dL Total Bilirubin (0.2-1.3) mg/dL AST (17-59) U/L ALT (7-56) U/L Alkaline Phosphatase (38-126) U/L Total Creatine Kinase (35-230) U/L Total Protein (5.8-8.3) g/dL Albumin (3.0-4.8) g/dL Globulin gm/dL Albumin/Globulin Ratio (1.1-1.8) Urine Color (YELLOW) Urine Appearance (CLEAR) Urine pH (4.7-8.0) Ur Specific [place] (1.005-1.035) Urine Protein (<30 mg/dL) mg/dL Urine Glucose (UA) (NEGATIVE) mg/dL Urine Ketones (NEGATIVE) mg/dL Urine Blood (NEGATIVE) Urine Nitrate (NEGATIVE) Urine Bilirubin (NEGATIVE) Urine Urobilinogen (<1 E.U./dL) E.U./dL Ur Leukocyte Esterase (NEGATIVE) Portia/uL Urine RBC (0-2) /hpf Urine WBC (0-6) /hpf Ur Epithelial Cells (0-5) /hpf Urine Opiates Screen (NEGATIVE) Urine Methadone Screen (NEGATIVE) Ur Barbiturates Screen (NEGATIVE) Ur Phencyclidine Scrn (NEGATIVE) Ur Amphetamines Screen (NEGATIVE) U Benzodiazepines Scrn (NEGATIVE) U Oth Cocaine Metabols (NEGATIVE) U Cannabinoids Screen (NEGATIVE) 07/11/17 07/11/17 07/11/17 Range/Units 10:22 08:45 07:25 WBC (4.5-11.0) 10^3/ul RBC (3.5-6.1) 10^6/uL Hgb (14.0-18.0) g/dL Hct (42.0-52.0) % MCV (80.0-105.0) fl MCH (25.0-35.0) pg MCHC (31.0-37.0) g/dl RDW (11.5-14.5) % Plt Count (120.0-450.0) 10^3/uL MPV (7.0-11.0) fl Gran % (50.0-68.0) % Lymph % (Auto) (22.0-35.0) % [place] % (Auto) (1.0-6.0) % Eos % (Auto) (1.5-5.0) % Baso % (Auto) (0.0-3.0) % Gran # (1.4-6.5) Lymph # (Auto) (1.2-3.4) [place] # (Auto) (0.1-0.6) Eos # (Auto) (0.0-0.7) Baso # (Auto) (0.0-2.0) K/mm3 pCO2 (35-45) mm/Hg pO2 (80-100) mm/Hg HCO3 (21-28) mmol/L ABG pH (7.35-7.45) ABG Total CO2 (22-28) mmol.L ABG O2 Saturation (95-98) % ABG O2 Content (15-23) ML/dl ABG Base Excess (-2.0-3.0) mmol/L ABG Hemoglobin (11.7-17.4) g/dL ABG Carboxyhemoglobin (0.5-1.5) % POC ABG HHb (Measured) (0-5) % ABG Methemoglobin (0.0-3.0) % ABG O2 Capacity (16-24) mL/dl Hgb O2 Saturation (95.0-98.0) % FiO2 % Sodium (132-148) mmol/L Potassium (3.6-5.0) mmol/L Chloride (98-107) mmol/L Carbon Dioxide (21-33) mmol/L Anion Gap (10-20) BUN (7-21) mg/dL Creatinine (0.8-1.5) mg/dl Est GFR ( Amer) Est GFR (Non-Af Amer) POC Glucose (mg/dL) 76 70 72 (65-110) mg/dL Random Glucose (70-110) mg/dL Calcium (8.4-10.5) mg/dL Phosphorus (2.5-4.5) mg/dL Magnesium (1.7-2.2) mg/dL Total Bilirubin (0.2-1.3) mg/dL AST (17-59) U/L ALT (7-56) U/L Alkaline Phosphatase (38-126) U/L Total Creatine Kinase (35-230) U/L Total Protein (5.8-8.3) g/dL Albumin (3.0-4.8) g/dL Globulin gm/dL Albumin/Globulin Ratio (1.1-1.8) Urine Color (YELLOW) Urine Appearance (CLEAR) Urine pH (4.7-8.0) Ur Specific [place] (1.005-1.035) Urine Protein (<30 mg/dL) mg/dL Urine Glucose (UA) (NEGATIVE) mg/dL Urine Ketones (NEGATIVE) mg/dL Urine Blood (NEGATIVE) Urine Nitrate (NEGATIVE) Urine Bilirubin (NEGATIVE) Urine Urobilinogen (<1 E.U./dL) E.U./dL Ur Leukocyte Esterase (NEGATIVE) [place]/uL Urine RBC (0-2) /hpf Urine WBC (0-6) /hpf Ur Epithelial Cells (0-5) /hpf Urine Opiates Screen (NEGATIVE) Urine Methadone Screen (NEGATIVE) Ur Barbiturates Screen (NEGATIVE) Ur Phencyclidine Scrn (NEGATIVE) Ur Amphetamines Screen (NEGATIVE) U Benzodiazepines Scrn (NEGATIVE) U Oth Cocaine Metabols (NEGATIVE) U Cannabinoids Screen (NEGATIVE) 07/11/17 07/11/17 07/11/17 Range/Units 06:57 06:05 06:05 WBC 9.9 (4.5-11.0) 10^3/ul RBC 3.94 (3.5-6.1) 10^6/uL Hgb 12.8 L D (14.0-18.0) g/dL Hct 37.9 L (42.0-52.0) % MCV 96.2 (80.0-105.0) fl MCH 32.5 (25.0-35.0) pg MCHC 33.8 (31.0-37.0) g/dl RDW 12.9 (11.5-14.5) % Plt Count 228 (120.0-450.0) 10^3/uL MPV 9.5 (7.0-11.0) fl Gran % 63.0 (50.0-68.0) % Lymph % (Auto) 25.6 (22.0-35.0) % [place] % (Auto) 9.3 H (1.0-6.0) % Eos % (Auto) 1.9 (1.5-5.0) % Baso % (Auto) 0.2 (0.0-3.0) % Gran # 6.20 (1.4-6.5) Lymph # (Auto) 2.5 (1.2-3.4) [place] # (Auto) 0.9 H (0.1-0.6) Eos # (Auto) 0.2 (0.0-0.7) Baso # (Auto) 0.02 (0.0-2.0) K/mm3 pCO2 (35-45) mm/Hg pO2 (80-100) mm/Hg HCO3 (21-28) mmol/L ABG pH (7.35-7.45) ABG Total CO2 (22-28) mmol.L ABG O2 Saturation (95-98) % ABG O2 Content (15-23) ML/dl ABG Base Excess (-2.0-3.0) mmol/L ABG Hemoglobin (11.7-17.4) g/dL ABG Carboxyhemoglobin (0.5-1.5) % POC ABG HHb (Measured) (0-5) % ABG Methemoglobin (0.0-3.0) % ABG O2 Capacity (16-24) mL/dl Hgb O2 Saturation (95.0-98.0) % FiO2 % Sodium 138 (132-148) mmol/L Potassium 3.7 (3.6-5.0) mmol/L Chloride 107 (98-107) mmol/L Carbon Dioxide 23 (21-33) mmol/L Anion Gap 12 (10-20) BUN 7 (7-21) mg/dL Creatinine 0.7 L (0.8-1.5) mg/dl Est GFR ( Amer) > 60 Est GFR (Non-Af Amer) > 60 POC Glucose (mg/dL) 53 L (65-110) mg/dL Random Glucose 64 L (70-110) mg/dL Calcium 8.4 (8.4-10.5) mg/dL Phosphorus 2.4 L (2.5-4.5) mg/dL Magnesium 1.9 (1.7-2.2) mg/dL Total Bilirubin 0.6 (0.2-1.3) mg/dL AST 26 (17-59) U/L ALT 40 (7-56) U/L Alkaline Phosphatase 57 (38-126) U/L Total Creatine Kinase 114 (35-230) U/L Total Protein 6.4 (5.8-8.3) g/dL Albumin 3.4 (3.0-4.8) g/dL Globulin 3.0 gm/dL Albumin/Globulin Ratio 1.1 (1.1-1.8) Urine Color (YELLOW) Urine Appearance (CLEAR) Urine pH (4.7-8.0) Ur Specific [place] (1.005-1.035) Urine Protein (<30 mg/dL) mg/dL Urine Glucose (UA) (NEGATIVE) mg/dL Urine Ketones (NEGATIVE) mg/dL Urine Blood (NEGATIVE) Urine Nitrate (NEGATIVE) Urine Bilirubin (NEGATIVE) Urine Urobilinogen (<1 E.U./dL) E.U./dL Ur Leukocyte Esterase (NEGATIVE) [place]/uL Urine RBC (0-2) /hpf Urine WBC (0-6) /hpf Ur Epithelial Cells (0-5) /hpf Urine Opiates Screen (NEGATIVE) Urine Methadone Screen (NEGATIVE) Ur Barbiturates Screen (NEGATIVE) Ur Phencyclidine Scrn (NEGATIVE) Ur Amphetamines Screen (NEGATIVE) U Benzodiazepines Scrn (NEGATIVE) U Oth Cocaine Metabols (NEGATIVE) U Cannabinoids Screen (NEGATIVE) 07/11/17 07/11/17 07/11/17 Range/Units 04:28 03:32 03:17 WBC (4.5-11.0) 10^3/ul RBC (3.5-6.1) 10^6/uL Hgb (14.0-18.0) g/dL Hct (42.0-52.0) % MCV (80.0-105.0) fl MCH (25.0-35.0) pg MCHC (31.0-37.0) g/dl RDW (11.5-14.5) % Plt Count (120.0-450.0) 10^3/uL MPV (7.0-11.0) fl Gran % (50.0-68.0) % Lymph % (Auto) (22.0-35.0) % [place] % (Auto) (1.0-6.0) % Eos % (Auto) (1.5-5.0) % Baso % (Auto) (0.0-3.0) % Gran # (1.4-6.5) Lymph # (Auto) (1.2-3.4) [place] # (Auto) (0.1-0.6) Eos # (Auto) (0.0-0.7) Baso # (Auto) (0.0-2.0) K/mm3 pCO2 37 (35-45) mm/Hg pO2 116.0 H (80-100) mm/Hg HCO3 21.4 (21-28) mmol/L ABG pH 7.37 (7.35-7.45) ABG Total CO2 22.5 (22-28) mmol.L ABG O2 Saturation 99.3 H (95-98) % ABG O2 Content 16.3 (15-23) ML/dl ABG Base Excess -3.4 L (-2.0-3.0) mmol/L ABG Hemoglobin 12.0 (11.7-17.4) g/dL ABG Carboxyhemoglobin 2.8 H (0.5-1.5) % POC ABG HHb (Measured) 0.7 (0-5) % ABG Methemoglobin 1.0 (0.0-3.0) % ABG O2 Capacity 16.4 (16-24) mL/dl Hgb O2 Saturation 95.4 (95.0-98.0) % FiO2 40.0 % Sodium (132-148) mmol/L Potassium (3.6-5.0) mmol/L Chloride (98-107) mmol/L Carbon Dioxide (21-33) mmol/L Anion Gap (10-20) BUN (7-21) mg/dL Creatinine (0.8-1.5) mg/dl Est GFR ( Amer) Est GFR (Non-Af Amer) POC Glucose (mg/dL) 98 63 L (65-110) mg/dL Random Glucose (70-110) mg/dL Calcium (8.4-10.5) mg/dL Phosphorus (2.5-4.5) mg/dL Magnesium (1.7-2.2) mg/dL Total Bilirubin (0.2-1.3) mg/dL AST (17-59) U/L ALT (7-56) U/L Alkaline Phosphatase (38-126) U/L Total Creatine Kinase (35-230) U/L Total Protein (5.8-8.3) g/dL Albumin (3.0-4.8) g/dL Globulin gm/dL Albumin/Globulin Ratio (1.1-1.8) Urine Color (YELLOW) Urine Appearance (CLEAR) Urine pH (4.7-8.0) Ur Specific [place] (1.005-1.035) Urine Protein (<30 mg/dL) mg/dL Urine Glucose (UA) (NEGATIVE) mg/dL Urine Ketones (NEGATIVE) mg/dL Urine Blood (NEGATIVE) Urine Nitrate (NEGATIVE) Urine Bilirubin (NEGATIVE) Urine Urobilinogen (<1 E.U./dL) E.U./dL Ur Leukocyte Esterase (NEGATIVE) [place]/uL Urine RBC (0-2) /hpf Urine WBC (0-6) /hpf Ur Epithelial Cells (0-5) /hpf Urine Opiates Screen (NEGATIVE) Urine Methadone Screen (NEGATIVE) Ur Barbiturates Screen (NEGATIVE) Ur Phencyclidine Scrn (NEGATIVE) Ur Amphetamines Screen (NEGATIVE) U Benzodiazepines Scrn (NEGATIVE) U Oth Cocaine Metabols (NEGATIVE) U Cannabinoids Screen (NEGATIVE) 07/10/17 07/10/17 Range/Units 21:40 21:40 WBC (4.5-11.0) 10^3/ul RBC (3.5-6.1) 10^6/uL Hgb (14.0-18.0) g/dL Hct (42.0-52.0) % MCV (80.0-105.0) fl MCH (25.0-35.0) pg MCHC (31.0-37.0) g/dl RDW (11.5-14.5) % Plt Count (120.0-450.0) 10^3/uL MPV (7.0-11.0) fl Gran % (50.0-68.0) % Lymph % (Auto) (22.0-35.0) % [place] % (Auto) (1.0-6.0) % Eos % (Auto) (1.5-5.0) % Baso % (Auto) (0.0-3.0) % Gran # (1.4-6.5) Lymph # (Auto) (1.2-3.4) [place] # (Auto) (0.1-0.6) Eos # (Auto) (0.0-0.7) Baso # (Auto) (0.0-2.0) K/mm3 pCO2 (35-45) mm/Hg pO2 (80-100) mm/Hg HCO3 (21-28) mmol/L ABG pH (7.35-7.45) ABG Total CO2 (22-28) mmol.L ABG O2 Saturation (95-98) % ABG O2 Content (15-23) ML/dl ABG Base Excess (-2.0-3.0) mmol/L ABG Hemoglobin (11.7-17.4) g/dL ABG Carboxyhemoglobin (0.5-1.5) % POC ABG HHb (Measured) (0-5) % ABG Methemoglobin (0.0-3.0) % ABG O2 Capacity (16-24) mL/dl Hgb O2 Saturation (95.0-98.0) % FiO2 % Sodium (132-148) mmol/L Potassium (3.6-5.0) mmol/L Chloride (98-107) mmol/L Carbon Dioxide (21-33) mmol/L Anion Gap (10-20) BUN (7-21) mg/dL Creatinine (0.8-1.5) mg/dl Est GFR ( Amer) Est GFR (Non-Af Amer) POC Glucose (mg/dL) (65-110) mg/dL Random Glucose (70-110) mg/dL Calcium (8.4-10.5) mg/dL Phosphorus (2.5-4.5) mg/dL Magnesium (1.7-2.2) mg/dL Total Bilirubin (0.2-1.3) mg/dL AST (17-59) U/L ALT (7-56) U/L Alkaline Phosphatase (38-126) U/L Total Creatine Kinase (35-230) U/L Total Protein (5.8-8.3) g/dL Albumin (3.0-4.8) g/dL Globulin gm/dL Albumin/Globulin Ratio (1.1-1.8) Urine Color Yellow (YELLOW) Urine Appearance Clear (CLEAR) Urine pH 6.0 (4.7-8.0) Ur Specific [place] 1.010 (1.005-1.035) Urine Protein Negative (<30 mg/dL) mg/dL Urine Glucose (UA) Negative (NEGATIVE) mg/dL Urine Ketones Negative (NEGATIVE) mg/dL Urine Blood Negative (NEGATIVE) Urine Nitrate Negative (NEGATIVE) Urine Bilirubin Negative (NEGATIVE) Urine Urobilinogen 0.2 (<1 E.U./dL) E.U./dL Ur Leukocyte Esterase Trace H (NEGATIVE) [place]/uL Urine RBC 0 - 2 (0-2) /hpf Urine WBC 0 - 2 (0-6) /hpf Ur Epithelial Cells 0 - 2 (0-5) /hpf Urine Opiates Screen Negative (NEGATIVE) Urine Methadone Screen Positive H (NEGATIVE) Ur Barbiturates Screen Negative (NEGATIVE) Ur Phencyclidine Scrn Negative (NEGATIVE) Ur Amphetamines Screen Negative (NEGATIVE) U Benzodiazepines Scrn Positive (NEGATIVE) U Oth Cocaine Metabols Negative (NEGATIVE) U Cannabinoids Screen Positive H (NEGATIVE) Laboratory Results - last 24 hr 07/10/17 07/10/17 07/11/17 21:40 21:40 03:17 WBC RBC Hgb Hct MCV MCH MCHC RDW Plt Count MPV Gran % Lymph % (Auto) [place] % (Auto) Eos % (Auto) Baso % (Auto) Gran # Lymph # (Auto) [place] # (Auto) Eos # (Auto) Baso # (Auto) pCO2 37 pO2 116.0 H HCO3 21.4 ABG pH 7.37 ABG Total CO2 22.5 ABG O2 Saturation 99.3 H ABG O2 Content 16.3 ABG Base Excess -3.4 L ABG Hemoglobin 12.0 ABG Carboxyhemoglobin 2.8 H POC ABG HHb (Measured) 0.7 ABG Methemoglobin 1.0 ABG O2 Capacity 16.4 Hgb O2 Saturation 95.4 FiO2 40.0 Sodium Potassium Chloride Carbon Dioxide Anion Gap BUN Creatinine Est GFR ( Amer) Est GFR (Non-Af Amer) POC Glucose (mg/dL) Random Glucose Calcium Phosphorus Magnesium Total Bilirubin AST ALT Alkaline Phosphatase Total Creatine Kinase Total Protein Albumin Globulin Albumin/Globulin Ratio Urine Color Yellow Urine Appearance Clear Urine pH 6.0 Ur Specific [place] 1.010 Urine Protein Negative Urine Glucose (UA) Negative Urine Ketones Negative Urine Blood Negative Urine Nitrate Negative Urine Bilirubin Negative Urine Urobilinogen 0.2 Ur Leukocyte Esterase Trace H Urine RBC 0 - 2 Urine WBC 0 - 2 Ur Epithelial Cells 0 - 2 Urine Opiates Screen Negative Urine Methadone Screen Positive H Ur Barbiturates Screen Negative Ur Phencyclidine Scrn Negative Ur Amphetamines Screen Negative U Benzodiazepines Scrn Positive U Oth Cocaine Metabols Negative U Cannabinoids Screen Positive H 07/11/17 07/11/17 07/11/17 03:32 04:28 06:05 WBC 9.9 RBC 3.94 Hgb 12.8 L D Hct 37.9 L MCV 96.2 MCH 32.5 MCHC 33.8 RDW 12.9 Plt Count 228 MPV 9.5 Gran % 63.0 Lymph % (Auto) 25.6 [place] % (Auto) 9.3 H Eos % (Auto) 1.9 Baso % (Auto) 0.2 Gran # 6.20 Lymph # (Auto) 2.5 [place] # (Auto) 0.9 H Eos # (Auto) 0.2 Baso # (Auto) 0.02 pCO2 pO2 HCO3 ABG pH ABG Total CO2 ABG O2 Saturation ABG O2 Content ABG Base Excess ABG Hemoglobin ABG Carboxyhemoglobin POC ABG HHb (Measured) ABG Methemoglobin ABG O2 Capacity Hgb O2 Saturation FiO2 Sodium Potassium Chloride Carbon Dioxide Anion Gap BUN Creatinine Est GFR ( Amer) Est GFR (Non-Af Amer) POC Glucose (mg/dL) 63 L 98 Random Glucose Calcium Phosphorus Magnesium Total Bilirubin AST ALT Alkaline Phosphatase Total Creatine Kinase Total Protein Albumin Globulin Albumin/Globulin Ratio Urine Color Urine Appearance Urine pH Ur Specific [place] Urine Protein Urine Glucose (UA) Urine Ketones Urine Blood Urine Nitrate Urine Bilirubin Urine Urobilinogen Ur Leukocyte Esterase Urine RBC Urine WBC Ur Epithelial Cells Urine Opiates Screen Urine Methadone Screen Ur Barbiturates Screen Ur Phencyclidine Scrn Ur Amphetamines Screen U Benzodiazepines Scrn U Oth Cocaine Metabols U Cannabinoids Screen 07/11/17 07/11/17 07/11/17 06:05 06:57 07:25 WBC RBC Hgb Hct MCV MCH MCHC RDW Plt Count MPV Gran % Lymph % (Auto) [place] % (Auto) Eos % (Auto) Baso % (Auto) Gran # Lymph # (Auto) [place] # (Auto) Eos # (Auto) Baso # (Auto) pCO2 pO2 HCO3 ABG pH ABG Total CO2 ABG O2 Saturation ABG O2 Content ABG Base Excess ABG Hemoglobin ABG Carboxyhemoglobin POC ABG HHb (Measured) ABG Methemoglobin ABG O2 Capacity Hgb O2 Saturation FiO2 Sodium 138 Potassium 3.7 Chloride 107 Carbon Dioxide 23 Anion Gap 12 BUN 7 Creatinine 0.7 L Est GFR ( Amer) > 60 Est GFR (Non-Af Amer) > 60 POC Glucose (mg/dL) 53 L 72 Random Glucose 64 L Calcium 8.4 Phosphorus 2.4 L Magnesium 1.9 Total Bilirubin 0.6 AST 26 ALT 40 Alkaline Phosphatase 57 Total Creatine Kinase 114 Total Protein 6.4 Albumin 3.4 Globulin 3.0 Albumin/Globulin Ratio 1.1 Urine Color Urine Appearance Urine pH Ur Specific [place] Urine Protein Urine Glucose (UA) Urine Ketones Urine Blood Urine Nitrate Urine Bilirubin Urine Urobilinogen Ur Leukocyte Esterase Urine RBC Urine WBC Ur Epithelial Cells Urine Opiates Screen Urine Methadone Screen Ur Barbiturates Screen Ur Phencyclidine Scrn Ur Amphetamines Screen U Benzodiazepines Scrn U Oth Cocaine Metabols U Cannabinoids Screen 07/11/17 07/11/17 07/11/17 08:45 10:22 10:50 WBC RBC Hgb Hct MCV MCH MCHC RDW Plt Count MPV Gran % Lymph % (Auto) [place] % (Auto) Eos % (Auto) Baso % (Auto) Gran # Lymph # (Auto) [place] # (Auto) Eos # (Auto) Baso # (Auto) pCO2 60 H pO2 135.0 H HCO3 25.1 ABG pH 7.23 L ABG Total CO2 26.9 ABG O2 Saturation 99.4 H ABG O2 Content 17.9 ABG Base Excess -3.4 L ABG Hemoglobin 13.0 ABG Carboxyhemoglobin 2.1 H POC ABG HHb (Measured) 0.6 ABG Methemoglobin 0.4 ABG O2 Capacity 18.0 Hgb O2 Saturation 96.9 FiO2 60.0 Sodium Potassium Chloride Carbon Dioxide Anion Gap BUN Creatinine Est GFR ( Amer) Est GFR (Non-Af Amer) POC Glucose (mg/dL) 70 76 Random Glucose Calcium Phosphorus Magnesium Total Bilirubin AST ALT Alkaline Phosphatase Total Creatine Kinase Total Protein Albumin Globulin Albumin/Globulin Ratio Urine Color Urine Appearance Urine pH Ur Specific [place] Urine Protein Urine Glucose (UA) Urine Ketones Urine Blood Urine Nitrate Urine Bilirubin Urine Urobilinogen Ur Leukocyte Esterase Urine RBC Urine WBC Ur Epithelial Cells Urine Opiates Screen Urine Methadone Screen Ur Barbiturates Screen Ur Phencyclidine Scrn Ur Amphetamines Screen U Benzodiazepines Scrn U Oth Cocaine Metabols U Cannabinoids Screen 07/11/17 07/11/17 11:11 11:53 WBC RBC Hgb Hct MCV MCH MCHC RDW Plt Count MPV Gran % Lymph % (Auto) [place] % (Auto) Eos % (Auto) Baso % (Auto) Gran # Lymph # (Auto) [place] # (Auto) Eos # (Auto) Baso # (Auto) pCO2 pO2 HCO3 ABG pH ABG Total CO2 ABG O2 Saturation ABG O2 Content ABG Base Excess ABG Hemoglobin ABG Carboxyhemoglobin POC ABG HHb (Measured) ABG Methemoglobin ABG O2 Capacity Hgb O2 Saturation FiO2 Sodium Potassium Chloride Carbon Dioxide Anion Gap BUN Creatinine Est GFR ( Amer) Est GFR (Non-Af Amer) POC Glucose (mg/dL) 83 75 Random Glucose Calcium Phosphorus Magnesium Total Bilirubin AST ALT Alkaline Phosphatase Total Creatine Kinase Total Protein Albumin Globulin Albumin/Globulin Ratio Urine Color Urine Appearance Urine pH Ur Specific [place] Urine Protein Urine Glucose (UA) Urine Ketones Urine Blood Urine Nitrate Urine Bilirubin Urine Urobilinogen Ur Leukocyte Esterase Urine RBC Urine WBC Ur Epithelial Cells Urine Opiates Screen Urine Methadone Screen Ur Barbiturates Screen Ur Phencyclidine Scrn Ur Amphetamines Screen U Benzodiazepines Scrn U Oth Cocaine Metabols U Cannabinoids Screen Critical Care Progress Note - Nutrition Nutrition: Nutrition Category Date Time Status NPO Diet [DIET] Diets 07/10/17 Dinner Ordered Assessment/Plan - Assessment and Plan (Free Text) Plan: Patient seen and examined on rounds with resident, agree with note with following additions/exceptions: Patient is 26yo male, with PMhx of obesity, polysubstance abuse, presented with AMS 2/2 opiate overdose, intubated for airway protection. This morning sedation shut, patient awake, alert, following commands, extubated, placed on BIPAP. Pt then started to become more drowsy, ABG obtained which showed mild resp acidosis , given narcan with improvement in mental status, currently minimally drowsy but responds to name, verbal stimuli, answering questions appropriately. Pt reports he only took Xanax, denies suicidal motive. Patient with minimal stridor , protecting airway, ENT consulted, racemic epi given, Decadron given. Hypercapnia Polysubstance abuse Opiate overdose Hypoglycemia Recommend: - cont with BIPAP, increase IPAP, 18/5/60%, monitor resp status closely, repeat ABG - ENT consult - Racemic Epi as needed - Duonebs - Decadron 4mg Q6hr IV - Narcan PRN - Monitor FS q1hr - D10 drip - endo consult - check C peptide - IVF hydration - NPO - GI ppx - DVT ppx - Monitor in MICU Critical care time 40 minutes
[2017-07-11] MEDS ORDERED: Lactated Ringer's 1,000 ML IV SCH (11:15)
[2017-07-11] MEDS ORDERED: Naloxone 0.4 mg/ml Inj (Adult) ONE (11:43)
[2017-07-11] MEDS ORDERED: Naloxone 0.4 mg/ml Inj (Adult) IVP ONE (13:08)
--- NOTE | 2017-07-11 13:39 | CP.PCM.CON ---
History of Present Illness - History of Present Illness History of Present Illness: CC: Dysphonia 26y/o male admitted to [facility] for drug/alcohol overdose. Pt was intubated for airway protection. Pt was having stridor after extubation today. This has improved during hospitalization. Mild throat discomfort. Pt has hx of sinus issues. Currently on BIPAP mask that was removed during time of exam. Review of Systems - Constitutional Constitutional: As Per HPI - EENT Eyes: As Per HPI Ears: As Per HPI, Abnormal Hearing Nose/Mouth/Throat: As Per HPI, Epistaxis, Nasal Congestion, Nasal Discharge, Nasal Obstruction, Odynophagia, Sore Throat - Cardiovascular Cardiovascular: As Per HPI - Respiratory Respiratory: As Per HPI - Gastrointestinal Gastrointestinal: As Per HPI - Genitourinary Genitourinary: As Per HPI - Reproductive: Male Reproductive:Male: As Per HPI - Musculoskeletal Musculoskeletal: As Per HPI - Integumentary Integumentary: As Per HPI - Neurological Neurological: As Per HPI - Psychiatric Psychiatric: As Per HPI - Endocrine Endocrine: As Per HPI - Hematologic/Lymphatic Hematologic: As Per HPI Past Patient History - Infectious Disease Hx of Infectious Diseases: None - Tetanus Immunizations Tetanus Immunization: Unknown - Past Medical History & Family History Past Medical History?: Yes - Past Social History Smoking Status: Light Smoker < 10 Cigarettes Daily - CARDIAC Hx Cardiac Disorders: No - PULMONARY Hx Respiratory Disorders: No - NEUROLOGICAL Hx Neurological Disorder: No - HEENT Hx HEENT Problems: No - RENAL Hx Chronic Kidney Disease: No - ENDOCRINE/METABOLIC Hx Endocrine Disorders: No - HEMATOLOGICAL/ONCOLOGICAL Hx Blood Disorders: No - INTEGUMENTARY Hx Dermatological Problems: No - MUSCULOSKELETAL/RHEUMATOLOGICAL Hx Arthritis: Yes - GASTROINTESTINAL Hx Gastrointestinal Disorders: No - GENITOURINARY/GYNECOLOGICAL Hx Genitourinary Disorders: No - PSYCHIATRIC Hx Depression: No Hx Emotional Abuse: No Hx Physical Abuse: No Hx Substance Use: Yes (Pills) - SURGICAL HISTORY Hx Orthopedic Surgery: Yes (R ANKLE) - ANESTHESIA Hx Anesthesia: Yes Hx Anesthesia Reactions: No Hx Malignant Hyperthermia: No Meds Allergies/Adverse Reactions: Allergies Allergy/AdvReac Type Severity Reaction Status Date / Time clarithromycin [From Biaxin] Allergy ANAPHYLAXIS Verified 07/10/17 16:19 - Medications Medications: Current Medications Albuterol/Ipratropium (Duoneb 3 Mg/0.5 Mg (3 Ml) Ud) 3 ml IH Q6H PRN PRN Reason: Shortness of Breath Dexamethasone (Decadron Inj) 4 mg IVP Q6 [facility] Last Admin: 07/11/17 12:03 Dose: 4 mg Sodium Chloride (Sodium Chloride 0.9%) 1,000 mls @ 150 mls/hr IV .Q6H40M [facility] Last Admin: 07/11/17 01:00 Dose: 150 mls/hr Dextrose (Dextrose 10% In Water) 500 mls @ 100 mls/hr IV .Q5H [facility] Pantoprazole Sodium (Protonix Inj) 40 mg IVP DAILY [facility] Last Admin: 07/11/17 09:33 Dose: 40 mg Physical Exam - Constitutional Appears: Well, Non-toxic, No Acute Distress, Agitated - Head Exam Head Exam: ATRAUMATIC, NORMAL INSPECTION, NORMOCEPHALIC - Eye Exam Eye Exam: EOMI, Normal appearance Pupil Exam: NORMAL ACCOMODATION, PERRL - ENT Exam ENT Exam: Mucous Membranes Moist, Normal Exam, Normal External Ear Exam, Normal Oropharynx, TM's Normal Bilaterally Additional comments: Procedure flexible laryngoscopy after informed verbal consent scope was inserted in left nares and advanced to supraglottis findings are below: Supraglottis: no edema wnl Glottis: no edema mild erythema hypopharynx: wnl vocal cord motion wnl pt tolerated the procedure well - Expanded ENT Exam Expanded Mouth exam: normal external inspection. absent: drooling Teeth exam: normal external inspection Throat exam: Normal Inspection - Neck Exam Neck exam: Positive for: Normal Inspection. Negative for: Lymphadenopathy - Respiratory Exam Respiratory Exam: NORMAL BREATHING PATTERN - Neurological Exam Neurological exam: Alert - Psychiatric Exam Psychiatric exam: Normal Affect, Normal Mood Results - Vital Signs Recent Vital Signs: Last Vital Signs Temp 97.6 F 07/11/17 00:12 Pulse 87 07/11/17 10:00 Resp 16 07/11/17 03:48 BP 104/64 07/11/17 02:00 Pulse Ox 99 07/11/17 03:48 - Labs Result Diagrams: 07/11/17 06:05 07/11/17 06:05 Labs: Laboratory Results - last 24 hr 07/10/17 07/10/17 07/11/17 21:40 21:40 03:17 WBC RBC Hgb Hct MCV MCH MCHC RDW Plt Count MPV Gran % Lymph % (Auto) [place] % (Auto) Eos % (Auto) Baso % (Auto) Gran # Lymph # (Auto) [place] # (Auto) Eos # (Auto) Baso # (Auto) pCO2 37 pO2 116.0 H HCO3 21.4 ABG pH 7.37 ABG Total CO2 22.5 ABG O2 Saturation 99.3 H ABG O2 Content 16.3 ABG Base Excess -3.4 L ABG Hemoglobin 12.0 ABG Carboxyhemoglobin 2.8 H POC ABG HHb (Measured) 0.7 ABG Methemoglobin 1.0 ABG O2 Capacity 16.4 Hgb O2 Saturation 95.4 FiO2 40.0 Sodium Potassium Chloride Carbon Dioxide Anion Gap BUN Creatinine Est GFR ( Amer) Est GFR (Non-Af Amer) POC Glucose (mg/dL) Random Glucose Calcium Phosphorus Magnesium Total Bilirubin AST ALT Alkaline Phosphatase Total Creatine Kinase Total Protein Albumin Globulin Albumin/Globulin Ratio Urine Color Yellow Urine Appearance Clear Urine pH 6.0 Ur Specific [place] 1.010 Urine Protein Negative Urine Glucose (UA) Negative Urine Ketones Negative Urine Blood Negative Urine Nitrate Negative Urine Bilirubin Negative Urine Urobilinogen 0.2 Ur Leukocyte Esterase Trace H Urine RBC 0 - 2 Urine WBC 0 - 2 Ur Epithelial Cells 0 - 2 Urine Opiates Screen Negative Urine Methadone Screen Positive H Ur Barbiturates Screen Negative Ur Phencyclidine Scrn Negative Ur Amphetamines Screen Negative U Benzodiazepines Scrn Positive U Oth Cocaine Metabols Negative U Cannabinoids Screen Positive H 07/11/17 07/11/17 07/11/17 03:32 04:28 06:05 WBC 9.9 RBC 3.94 Hgb 12.8 L D Hct 37.9 L MCV 96.2 MCH 32.5 MCHC 33.8 RDW 12.9 Plt Count 228 MPV 9.5 Gran % 63.0 Lymph % (Auto) 25.6 [place] % (Auto) 9.3 H Eos % (Auto) 1.9 Baso % (Auto) 0.2 Gran # 6.20 Lymph # (Auto) 2.5 [place] # (Auto) 0.9 H Eos # (Auto) 0.2 Baso # (Auto) 0.02 pCO2 pO2 HCO3 ABG pH ABG Total CO2 ABG O2 Saturation ABG O2 Content ABG Base Excess ABG Hemoglobin ABG Carboxyhemoglobin POC ABG HHb (Measured) ABG Methemoglobin ABG O2 Capacity Hgb O2 Saturation FiO2 Sodium Potassium Chloride Carbon Dioxide Anion Gap BUN Creatinine Est GFR ( Amer) Est GFR (Non-Af Amer) POC Glucose (mg/dL) 63 L 98 Random Glucose Calcium Phosphorus Magnesium Total Bilirubin AST ALT Alkaline Phosphatase Total Creatine Kinase Total Protein Albumin Globulin Albumin/Globulin Ratio Urine Color Urine Appearance Urine pH Ur Specific [place] Urine Protein Urine Glucose (UA) Urine Ketones Urine Blood Urine Nitrate Urine Bilirubin Urine Urobilinogen Ur Leukocyte Esterase Urine RBC Urine WBC Ur Epithelial Cells Urine Opiates Screen Urine Methadone Screen Ur Barbiturates Screen Ur Phencyclidine Scrn Ur Amphetamines Screen U Benzodiazepines Scrn U Oth Cocaine Metabols U Cannabinoids Screen 07/11/17 07/11/17 07/11/17 06:05 06:57 07:25 WBC RBC Hgb Hct MCV MCH MCHC RDW Plt Count MPV Gran % Lymph % (Auto) [place] % (Auto) Eos % (Auto) Baso % (Auto) Gran # Lymph # (Auto) [place] # (Auto) Eos # (Auto) Baso # (Auto) pCO2 pO2 HCO3 ABG pH ABG Total CO2 ABG O2 Saturation ABG O2 Content ABG Base Excess ABG Hemoglobin ABG Carboxyhemoglobin POC ABG HHb (Measured) ABG Methemoglobin ABG O2 Capacity Hgb O2 Saturation FiO2 Sodium 138 Potassium 3.7 Chloride 107 Carbon Dioxide 23 Anion Gap 12 BUN 7 Creatinine 0.7 L Est GFR ( Amer) > 60 Est GFR (Non-Af Amer) > 60 POC Glucose (mg/dL) 53 L 72 Random Glucose 64 L Calcium 8.4 Phosphorus 2.4 L Magnesium 1.9 Total Bilirubin 0.6 AST 26 ALT 40 Alkaline Phosphatase 57 Total Creatine Kinase 114 Total Protein 6.4 Albumin 3.4 Globulin 3.0 Albumin/Globulin Ratio 1.1 Urine Color Urine Appearance Urine pH Ur Specific [place] Urine Protein Urine Glucose (UA) Urine Ketones Urine Blood Urine Nitrate Urine Bilirubin Urine Urobilinogen Ur Leukocyte Esterase Urine RBC Urine WBC Ur Epithelial Cells Urine Opiates Screen Urine Methadone Screen Ur Barbiturates Screen Ur Phencyclidine Scrn Ur Amphetamines Screen U Benzodiazepines Scrn U Oth Cocaine Metabols U Cannabinoids Screen 07/11/17 07/11/17 07/11/17 08:45 10:22 10:50 WBC RBC Hgb Hct MCV MCH MCHC RDW Plt Count MPV Gran % Lymph % (Auto) [place] % (Auto) Eos % (Auto) Baso % (Auto) Gran # Lymph # (Auto) [place] # (Auto) Eos # (Auto) Baso # (Auto) pCO2 60 H pO2 135.0 H HCO3 25.1 ABG pH 7.23 L ABG Total CO2 26.9 ABG O2 Saturation 99.4 H ABG O2 Content 17.9 ABG Base Excess -3.4 L ABG Hemoglobin 13.0 ABG Carboxyhemoglobin 2.1 H POC ABG HHb (Measured) 0.6 ABG Methemoglobin 0.4 ABG O2 Capacity 18.0 Hgb O2 Saturation 96.9 FiO2 60.0 Sodium Potassium Chloride Carbon Dioxide Anion Gap BUN Creatinine Est GFR ( Amer) Est GFR (Non-Af Amer) POC Glucose (mg/dL) 70 76 Random Glucose Calcium Phosphorus Magnesium Total Bilirubin AST ALT Alkaline Phosphatase Total Creatine Kinase Total Protein Albumin Globulin Albumin/Globulin Ratio Urine Color Urine Appearance Urine pH Ur Specific [place] Urine Protein Urine Glucose (UA) Urine Ketones Urine Blood Urine Nitrate Urine Bilirubin Urine Urobilinogen Ur Leukocyte Esterase Urine RBC Urine WBC Ur Epithelial Cells Urine Opiates Screen Urine Methadone Screen Ur Barbiturates Screen Ur Phencyclidine Scrn Ur Amphetamines Screen U Benzodiazepines Scrn U Oth Cocaine Metabols U Cannabinoids Screen 07/11/17 07/11/17 11:11 11:53 WBC RBC Hgb Hct MCV MCH MCHC RDW Plt Count MPV Gran % Lymph % (Auto) [place] % (Auto) Eos % (Auto) Baso % (Auto) Gran # Lymph # (Auto) [place] # (Auto) Eos # (Auto) Baso # (Auto) pCO2 pO2 HCO3 ABG pH ABG Total CO2 ABG O2 Saturation ABG O2 Content ABG Base Excess ABG Hemoglobin ABG Carboxyhemoglobin POC ABG HHb (Measured) ABG Methemoglobin ABG O2 Capacity Hgb O2 Saturation FiO2 Sodium Potassium Chloride Carbon Dioxide Anion Gap BUN Creatinine Est GFR ( Amer) Est GFR (Non-Af Amer) POC Glucose (mg/dL) 83 75 Random Glucose Calcium Phosphorus Magnesium Total Bilirubin AST ALT Alkaline Phosphatase Total Creatine Kinase Total Protein Albumin Globulin Albumin/Globulin Ratio Urine Color Urine Appearance Urine pH Ur Specific [place] Urine Protein Urine Glucose (UA) Urine Ketones Urine Blood Urine Nitrate Urine Bilirubin Urine Urobilinogen Ur Leukocyte Esterase Urine RBC Urine WBC Ur Epithelial Cells Urine Opiates Screen Urine Methadone Screen Ur Barbiturates Screen Ur Phencyclidine Scrn Ur Amphetamines Screen U Benzodiazepines Scrn U Oth Cocaine Metabols U Cannabinoids Screen Assessment & Plan (1) Substance abuse Status: Acute (2) Cellulitis Status: Acute (3) Other voice and resonance disorders Status: Acute (4) Laryngeal edema Status: Acute - Assessment and Plan (Free Text) Assessment: conservative management, saline to nose , f/u as out patient for nasal eval
[2017-07-12] MEDS: Sodium Chloride 0.9% 1,000 ML IV SCH (02:09)
[2017-07-12] MEDS ORDERED: Oxycodone/Acetaminophen 5/325 mg Tab PO ONE (02:44)
--- NOTE | 2017-07-12 05:09 | CON ---
DATE: 07/11/2017 PULMONARY CONSULT REFERRING PHYSICIAN: Alice Rooney MD REASON FOR CONSULT: Status post overdose, may have sleep apnea syndrome. HISTORY OF PRESENT ILLNESS: This is a 26-year-old gentleman with multiple psychiatric issues including major depression, anxiety disorder, history of Psychiatry admission in the past, history of substance abuse in the past, noncompliant of medication and followup, being upset with the family. Apparently patient took oxycodone, also had some Xanax to take. Also he thinks he took some methadone. According to mother, he was attempting to do suicide and kill himself. He was intubated and admitted to Critical Care Unit. Presently extubated, lying in the bed, in a one-to-one supervision. Denying any headache or rhinitis. Admits to have snoring, daytime sleepy, and tired. No hemoptysis. No hematemesis. No hematuria. No diarrhea. PAST MEDICAL HISTORY: Major depression, history of substance abuse, obesity, may have sleep apnea syndrome, has previous Psychiatry admission. ALLERGIES: ALLERGIC TO CLARITHROMYCIN. SOCIAL HISTORY: Admits to have smoking. Denied any alcohol abuse. FAMILY HISTORY: No significant cardiopulmonary disease reported. MEDICATIONS: Decadron 4 mg IV every 6 hour was given, IV fluid, dextrose was given, DuoNeb every 6 hour p.r.n., nasal saline p.r.n. basis, Protonix 40 mg daily, IV fluid normal saline 50 mL/hour. REVIEW OF SYSTEMS: No headache. No rhinitis. Had some bloody ET tube nasal secretion. No vomiting. No hematuria. No diarrhea. No leg pain or leg swelling. PHYSICAL EXAMINATION: VITAL SIGNS: Temp is 98, heart rate is 83, respiratory rate is 20, blood pressure 104/64, pulse ox 90% on nasal cannula. HEENT: Moist mucous membrane. Crowded airway. Mallampati score is 4. NECK: Short thick neck. LUNGS: Have a few scattered rhonchi. HEART: S1 and S2. ABDOMEN: Soft and nontender. No organomegaly. EXTREMITIES: No edema. NEUROLOGIC: Awake and alert. Follows simple command. LABORATORY DATA: Shows hemoglobin 12.8, hematocrit 37.9, WBC 9.9, platelet is 228. Blood gases show this morning pH 7.23, pCO2 60, O2 135 that was on ventilator with 60% oxygen. Sodium 138, potassium 3.7, chloride 107, bicarbonate 23, BUN 7, creatinine 0.7, glucose 72, calcium 8.4, phosphorus 2.4, magnesium 1.9. AST 26, ALT 40, alk phos is 57, albumin is 3.4. Urinalysis unremarkable. Drug screen shows methadone was positive. Also cannabinoid was positive. Benzodiazepine is positive. Chest x-ray done shows no infiltrate or effusion. No pneumothorax. At that time, he was intubated. IMPRESSION AND PLAN: Drug overdose, which include methadone, benzodiazepine, and marijuana with respiratory failure, requiring intubation. He was given multiple doses of Narcan. According to mother, there was an attempt to suicide. Presently, wishing to go to Psychiatry floor, extubated. So, we will recommend use of bilevel positive airway pressure tonight. Keep head at 45 degrees. By tomorrow, may discontinue and taper off steroids. Aspiration precaution. We will recommend dysphagia evaluation at bedside. Psychiatry followup. Thank you and we will follow with you. Nayely Means MD
[2017-07-12] MEDS: Dexamethasone 4 mg/1 ml IVP SCH (06:03)
[2017-07-12 06:35] LABS: IRON 45 ug/dL (45-180)
[2017-07-12 06:44] LABS: % IRON SATURATION 18 % (20-55); TOTAL IRON BINDING CAPACITY 249 ug/dL (261-462)
[2017-07-12 06:49] LABS: LDL CHOLESTEROL 155 mg/dL (0-129)
--- NOTE | 2017-07-12 06:54 | HP ---
The patient is a 26-year-old male. CHIEF COMPLAINT: Substance abuse. HISTORY OF PRESENT ILLNESS: Mr. Jr Myers is a 26-year-old male with nonsignificant past medical history, came to the emergency room. He got argument with his mother and then drank alcohol and took Percocet trying to get high. He reports that he is depressive, but he denies suicidal or homicidal ideation. He arrived via ambulance accompanied by police. He was found unresponsive and given Narcan and did improve with Narcan. When I saw the patient in the ICU, he was intubated, opening eyes on command. PAST MEDICAL HISTORY: Not significant, only arthritis, depression, orthopedic surgery of the right ankle. FAMILY HISTORY: Father and mother, noncontributory. HABITS: Smoking: Light, less than 10 cigarettes a day. Alcohol: Yes, socially. Substance abuse: Yes, pills. ALLERGIES: THE PATIENT IS ALLERGIC WITH CLARITHROMYCIN. HOME MEDICATIONS: The patient did not remember. REVIEW OF SYSTEMS: The patient was seen and examined at the bedside, looking comfortable. Patient is intubated. No fever. No chest pain. No palpitation. No syncope. No abdominal pain, diarrhea, nausea or vomiting. Has headache, dizziness, focal weakness. PHYSICAL EXAMINATION: VITAL SIGNS: Temperature 97.9, pulse 87, blood pressure 144/77, pulse oximetry of 93%. HEENT: Head normocephalic, atraumatic. Eyes, closed. Nose patent. NECK: Supple. No carotid bruit. No JVD or thyromegaly. CHEST: Bilaterally symmetrical. HEART: S1, S2 positive. LUNGS: Clear to auscultation. ABDOMEN: Soft. Bowel sounds present. No organomegaly. EXTREMITIES: No edema. No cyanosis. NEUROLOGIC: The patient is intubated. Cannot do neurological examination. LABORATORY DATA: White blood cell 9.9, hemoglobin 12.8, hematocrit 37.9, platelets 228. Glucose 101. Sodium 138, potassium 3.7, BUN 7, creatinine 0.7, glucose 53, phosphorus 2.4. ASSESSMENT AND PLAN: Mr. Jr Myers is a 26-year-old male with anemia, hypoglycemia, hypophosphatemia, urinary tract infection. Toxicology positive for urine methadone screen and cannabinoid screen. Seen by Dr. Anders Brunson, ENT. History of drug overdose, polysubstance overdose. Patient had stridor after extubating today. This has improved during hospitalization, has mild throat discomfort. Patient has history of sinus issues, currently on bilevel positive airway pressure, removed during the time of exam and we called Psych consult. Gastrointestinal and deep venous thrombosis prophylaxis. Repeat labs. History of over-responsive disorder, laryngeal edema. Conservative management. Followup as outpatient for nasal evaluation. We will followup. Alice Rooney MD [facility]
[2017-07-12 06:55] LABS: ALB/GLOB RATIO 1.2 (1.1-1.8); ALBUMIN 4.1 g/dL (3.0-4.8); ALT/SGPT 36 U/L (7-56); AST/SGOT 34 U/L (17-59); BLOOD UREA NITROGEN 7 mg/dL (7-21); CALCIUM 9.8 mg/dL (8.4-10.5); GFR AFRICAN-AMERICAN > 60; GFR NON-AFRICAN AMERICAN > 60; HDL CHOLESTEROL 41 mg/dL (29-60)
[2017-07-12 07:35] LABS: GRAN # 11.91 (1.4-6.5); HEMOGLOBIN 13.2 g/dL (14.0-18.0); LYMPH # 0.9 (1.2-3.4); MEAN CELL VOLUME 94.4 fl (80.0-105.0); MEAN CORPUSCULAR HEMOGLOBIN 32.2 pg (25.0-35.0); MEAN CORPUSCULAR HGB CONC 34.1 g/dl (31.0-37.0); MONO # 0.5 (0.1-0.6); RBC 4.1 10^6/uL (3.5-6.1); RED CELL DISTRIBUTION WIDTH 12.5 % (11.5-14.5); WHITE BLOOD COUNT 13.4 10^3/ul (4.5-11.0)
[2017-07-12] MEDS: Pantoprazole 40 mg EC Tab PO SCH (09:55)
--- NOTE | 2017-07-12 11:57 | CP.CCUPN ---
<Thaddeus Magallon - Last Filed: 07/12/17 11:53> CCU Subjective - Physician Review Subjective (Free Text): Patient seen and examined bedside. No acute issues overnight. Patient alert, awake, answering questions appropriately. Patient denies chest pain, shortness of breath or any other complaints at this time. Patient will be transferred to med surg. CCU Objective - Vital Signs / Intake & Output Intake and Output (Last 8hrs): Intake & Output 07/11/17 07/12/17 07/12/17 22:59 06:59 14:59 Intake Total 2730 2100 Output Total 1700 2500 Balance 1030 -400 Weight 262 lb Intake: IV 2250 900 Right Antecubital 750 Right Hand 1500 right outer antecubital 900 Oral 480 1200 Output: Urine 1700 2500 2-way Urethral 1700 2500 Other: # Voids 2-way Urethral 3 - Physical Exam Head: Positive for: Atraumatic, Normocephalic Pupils: Positive for: PERRL Extroacular Muscles: Positive for: EOMI Conjunctiva: Positive for: Normal Mouth: Positive for: Moist Mucous Membranes Pharnyx: Negative for: ERYTHEMA, EXUDATE, TONSILS ENLARGED Neck: Positive for: Normal Range of Motion Respiratory/Chest: Positive for: Clear to Auscultation, Good Air Exchange. Negative for: Respiratory Distress, Accessory Muscle Use Cardiovascular: Positive for: Regular Rate and Rhythm, Normal S1, S2. Negative for: Murmurs Abdomen: Negative for: Tenderness, Distention, Peritoneal Signs, Rebound, Guarding Upper Extremity: Positive for: Normal Inspection. Negative for: Cyanosis, Edema Lower Extremity: Positive for: Normal Inspection. Negative for: Edema Neurological: Positive for: GCS=15, CN II-XII Intact, Motor Func Grossly Intact , Normal Sensory Function, Other (lethargic, drowsy ) Skin: Positive for: Warm, Dry, Normal Color. Negative for: Rashes Psychiatric: Positive for: Alert, Oriented x 3, Normal Insight, Normal Concentration. Negative for: Anxious, Agitated, Suicidal Ideation, Homicidal Ideation, Delusional, Hallucinations - Medications Active Medications: Active Medications Generic Name Dose Route Start Last Admin Trade Name Freq PRN Reason Stop Dose Admin Albuterol/Ipratropium 3 ml 07/11/17 08:36 Duoneb 3 Mg/0.5 Mg (3 Ml) Ud IH Q6H PRN Shortness of Breath Dexamethasone 4 mg 07/12/17 22:00 Decadron Inj IVP Q12 BENSON Pantoprazole Sodium 40 mg 07/12/17 10:00 07/12/17 09:55 Protonix Ec Tab PO 40 mg DAILY BENSON Administration Sertraline HCl 50 mg 07/13/17 10:00 Zoloft PO DAILY BENSON Sodium Chloride 0 ml 07/12/17 07:20 [place] Nasal [place] NS QID PRN Sinus symptoms - Patient Studies Lab Studies: Lab Studies 07/12/17 07/12/17 07/12/17 Range/Units 11:15 05:50 05:30 WBC (4.5-11.0) 10^3/ul RBC (3.5-6.1) 10^6/uL Hgb (14.0-18.0) g/dL Hct (42.0-52.0) % MCV (80.0-105.0) fl MCH (25.0-35.0) pg MCHC (31.0-37.0) g/dl RDW (11.5-14.5) % Plt Count (120.0-450.0) 10^3/uL MPV (7.0-11.0) fl Gran % (50.0-68.0) % Lymph % (Auto) (22.0-35.0) % Green % (Auto) (1.0-6.0) % Eos % (Auto) (1.5-5.0) % Baso % (Auto) (0.0-3.0) % Gran # (1.4-6.5) Lymph # (Auto) (1.2-3.4) Green # (Auto) (0.1-0.6) Eos # (Auto) (0.0-0.7) Baso # (Auto) (0.0-2.0) K/mm3 Sodium (132-148) mmol/L Potassium (3.6-5.0) mmol/L Chloride (98-107) mmol/L Carbon Dioxide (21-33) mmol/L Anion Gap (10-20) BUN (7-21) mg/dL Creatinine (0.8-1.5) mg/dl Est GFR ( Amer) Est GFR (Non-Af Amer) POC Glucose (mg/dL) 109 121 H (65-110) mg/dL Random Glucose (70-110) mg/dL Calcium (8.4-10.5) mg/dL Iron (45-180) ug/dL TIBC (261-462) ug/dL % Saturation (20-55) % Total Bilirubin (0.2-1.3) mg/dL AST (17-59) U/L ALT (7-56) U/L Alkaline Phosphatase (38-126) U/L Total Protein (5.8-8.3) g/dL Albumin (3.0-4.8) g/dL Globulin gm/dL Albumin/Globulin Ratio (1.1-1.8) Triglycerides (35-160) mg/dL Cholesterol (130-200) mg/dL LDL Cholesterol Direct (0-129) mg/dL HDL Cholesterol (29-60) mg/dL TSH 3rd Generation 0.18 L (0.46-4.68) mIU/mL 07/12/17 07/12/17 07/12/17 Range/Units 05:30 05:30 05:30 WBC 13.4 H D (4.5-11.0) 10^3/ul RBC 4.10 (3.5-6.1) 10^6/uL Hgb 13.2 L (14.0-18.0) g/dL Hct 38.7 L (42.0-52.0) % MCV 94.4 (80.0-105.0) fl MCH 32.2 (25.0-35.0) pg MCHC 34.1 (31.0-37.0) g/dl RDW 12.5 (11.5-14.5) % Plt Count 273 (120.0-450.0) 10^3/uL MPV 10.0 (7.0-11.0) fl Gran % 89.0 H (50.0-68.0) % Lymph % (Auto) 7.0 L (22.0-35.0) % Green % (Auto) 4.0 (1.0-6.0) % Eos % (Auto) 0.0 L (1.5-5.0) % Baso % (Auto) 0.0 (0.0-3.0) % Gran # 11.91 H (1.4-6.5) Lymph # (Auto) 0.9 L (1.2-3.4) Green # (Auto) 0.5 (0.1-0.6) Eos # (Auto) 0.0 (0.0-0.7) Baso # (Auto) 0.00 (0.0-2.0) K/mm3 Sodium 139 (132-148) mmol/L Potassium 4.1 (3.6-5.0) mmol/L Chloride 105 (98-107) mmol/L Carbon Dioxide 28 (21-33) mmol/L Anion Gap 11 (10-20) BUN 7 (7-21) mg/dL Creatinine 0.7 L (0.8-1.5) mg/dl Est GFR ( Amer) > 60 Est GFR (Non-Af Amer) > 60 POC Glucose (mg/dL) (65-110) mg/dL Random Glucose 126 H (70-110) mg/dL Calcium 9.8 (8.4-10.5) mg/dL Iron 45 (45-180) ug/dL TIBC 249 L (261-462) ug/dL % Saturation 18 L (20-55) % Total Bilirubin 0.3 (0.2-1.3) mg/dL AST 34 (17-59) U/L ALT 36 (7-56) U/L Alkaline Phosphatase 66 (38-126) U/L Total Protein 7.5 (5.8-8.3) g/dL Albumin 4.1 (3.0-4.8) g/dL Globulin 3.4 gm/dL Albumin/Globulin Ratio 1.2 (1.1-1.8) Triglycerides 82 (35-160) mg/dL Cholesterol 234 H (130-200) mg/dL LDL Cholesterol Direct 155 H (0-129) mg/dL HDL Cholesterol 41 (29-60) mg/dL TSH 3rd Generation (0.46-4.68) mIU/mL 07/12/17 07/11/17 07/11/17 Range/Units 01:44 23:33 22:09 WBC (4.5-11.0) 10^3/ul RBC (3.5-6.1) 10^6/uL Hgb (14.0-18.0) g/dL Hct (42.0-52.0) % MCV (80.0-105.0) fl MCH (25.0-35.0) pg MCHC (31.0-37.0) g/dl RDW (11.5-14.5) % Plt Count (120.0-450.0) 10^3/uL MPV (7.0-11.0) fl Gran % (50.0-68.0) % Lymph % (Auto) (22.0-35.0) % Green % (Auto) (1.0-6.0) % Eos % (Auto) (1.5-5.0) % Baso % (Auto) (0.0-3.0) % Gran # (1.4-6.5) Lymph # (Auto) (1.2-3.4) Green # (Auto) (0.1-0.6) Eos # (Auto) (0.0-0.7) Baso # (Auto) (0.0-2.0) K/mm3 Sodium (132-148) mmol/L Potassium (3.6-5.0) mmol/L Chloride (98-107) mmol/L Carbon Dioxide (21-33) mmol/L Anion Gap (10-20) BUN (7-21) mg/dL Creatinine (0.8-1.5) mg/dl Est GFR ( Amer) Est GFR (Non-Af Amer) POC Glucose (mg/dL) 125 H 141 H 101 (65-110) mg/dL Random Glucose (70-110) mg/dL Calcium (8.4-10.5) mg/dL Iron (45-180) ug/dL TIBC (261-462) ug/dL % Saturation (20-55) % Total Bilirubin (0.2-1.3) mg/dL AST (17-59) U/L ALT (7-56) U/L Alkaline Phosphatase (38-126) U/L Total Protein (5.8-8.3) g/dL Albumin (3.0-4.8) g/dL Globulin gm/dL Albumin/Globulin Ratio (1.1-1.8) Triglycerides (35-160) mg/dL Cholesterol (130-200) mg/dL LDL Cholesterol Direct (0-129) mg/dL HDL Cholesterol (29-60) mg/dL TSH 3rd Generation (0.46-4.68) mIU/mL 07/11/17 07/11/17 07/11/17 Range/Units 20:47 18:56 18:02 WBC (4.5-11.0) 10^3/ul RBC (3.5-6.1) 10^6/uL Hgb (14.0-18.0) g/dL Hct (42.0-52.0) % MCV (80.0-105.0) fl MCH (25.0-35.0) pg MCHC (31.0-37.0) g/dl RDW (11.5-14.5) % Plt Count (120.0-450.0) 10^3/uL MPV (7.0-11.0) fl Gran % (50.0-68.0) % Lymph % (Auto) (22.0-35.0) % Green % (Auto) (1.0-6.0) % Eos % (Auto) (1.5-5.0) % Baso % (Auto) (0.0-3.0) % Gran # (1.4-6.5) Lymph # (Auto) (1.2-3.4) Green # (Auto) (0.1-0.6) Eos # (Auto) (0.0-0.7) Baso # (Auto) (0.0-2.0) K/mm3 Sodium (132-148) mmol/L Potassium (3.6-5.0) mmol/L Chloride (98-107) mmol/L Carbon Dioxide (21-33) mmol/L Anion Gap (10-20) BUN (7-21) mg/dL Creatinine (0.8-1.5) mg/dl Est GFR ( Amer) Est GFR (Non-Af Amer) POC Glucose (mg/dL) 137 H 114 H 136 H (65-110) mg/dL Random Glucose (70-110) mg/dL Calcium (8.4-10.5) mg/dL Iron (45-180) ug/dL TIBC (261-462) ug/dL % Saturation (20-55) % Total Bilirubin (0.2-1.3) mg/dL AST (17-59) U/L ALT (7-56) U/L Alkaline Phosphatase (38-126) U/L Total Protein (5.8-8.3) g/dL Albumin (3.0-4.8) g/dL Globulin gm/dL Albumin/Globulin Ratio (1.1-1.8) Triglycerides (35-160) mg/dL Cholesterol (130-200) mg/dL LDL Cholesterol Direct (0-129) mg/dL HDL Cholesterol (29-60) mg/dL TSH 3rd Generation (0.46-4.68) mIU/mL 07/11/17 07/11/17 07/11/17 Range/Units 17:03 16:04 15:04 WBC (4.5-11.0) 10^3/ul RBC (3.5-6.1) 10^6/uL Hgb (14.0-18.0) g/dL Hct (42.0-52.0) % MCV (80.0-105.0) fl MCH (25.0-35.0) pg MCHC (31.0-37.0) g/dl RDW (11.5-14.5) % Plt Count (120.0-450.0) 10^3/uL MPV (7.0-11.0) fl Gran % (50.0-68.0) % Lymph % (Auto) (22.0-35.0) % Green % (Auto) (1.0-6.0) % Eos % (Auto) (1.5-5.0) % Baso % (Auto) (0.0-3.0) % Gran # (1.4-6.5) Lymph # (Auto) (1.2-3.4) Green # (Auto) (0.1-0.6) Eos # (Auto) (0.0-0.7) Baso # (Auto) (0.0-2.0) K/mm3 Sodium (132-148) mmol/L Potassium (3.6-5.0) mmol/L Chloride (98-107) mmol/L Carbon Dioxide (21-33) mmol/L Anion Gap (10-20) BUN (7-21) mg/dL Creatinine (0.8-1.5) mg/dl Est GFR ( Amer) Est GFR (Non-Af Amer) POC Glucose (mg/dL) 157 H 163 H 104 (65-110) mg/dL Random Glucose (70-110) mg/dL Calcium (8.4-10.5) mg/dL Iron (45-180) ug/dL TIBC (261-462) ug/dL % Saturation (20-55) % Total Bilirubin (0.2-1.3) mg/dL AST (17-59) U/L ALT (7-56) U/L Alkaline Phosphatase (38-126) U/L Total Protein (5.8-8.3) g/dL Albumin (3.0-4.8) g/dL Globulin gm/dL Albumin/Globulin Ratio (1.1-1.8) Triglycerides (35-160) mg/dL Cholesterol (130-200) mg/dL LDL Cholesterol Direct (0-129) mg/dL HDL Cholesterol (29-60) mg/dL TSH 3rd Generation (0.46-4.68) mIU/mL 07/11/17 07/11/17 07/11/17 Range/Units 14:06 12:49 11:53 WBC (4.5-11.0) 10^3/ul RBC (3.5-6.1) 10^6/uL Hgb (14.0-18.0) g/dL Hct (42.0-52.0) % MCV (80.0-105.0) fl MCH (25.0-35.0) pg MCHC (31.0-37.0) g/dl RDW (11.5-14.5) % Plt Count (120.0-450.0) 10^3/uL MPV (7.0-11.0) fl Gran % (50.0-68.0) % Lymph % (Auto) (22.0-35.0) % Green % (Auto) (1.0-6.0) % Eos % (Auto) (1.5-5.0) % Baso % (Auto) (0.0-3.0) % Gran # (1.4-6.5) Lymph # (Auto) (1.2-3.4) Green # (Auto) (0.1-0.6) Eos # (Auto) (0.0-0.7) Baso # (Auto) (0.0-2.0) K/mm3 Sodium (132-148) mmol/L Potassium (3.6-5.0) mmol/L Chloride (98-107) mmol/L Carbon Dioxide (21-33) mmol/L Anion Gap (10-20) BUN (7-21) mg/dL Creatinine (0.8-1.5) mg/dl Est GFR ( Amer) Est GFR (Non-Af Amer) POC Glucose (mg/dL) 103 96 75 (65-110) mg/dL Random Glucose (70-110) mg/dL Calcium (8.4-10.5) mg/dL Iron (45-180) ug/dL TIBC (261-462) ug/dL % Saturation (20-55) % Total Bilirubin (0.2-1.3) mg/dL AST (17-59) U/L ALT (7-56) U/L Alkaline Phosphatase (38-126) U/L Total Protein (5.8-8.3) g/dL Albumin (3.0-4.8) g/dL Globulin gm/dL Albumin/Globulin Ratio (1.1-1.8) Triglycerides (35-160) mg/dL Cholesterol (130-200) mg/dL LDL Cholesterol Direct (0-129) mg/dL HDL Cholesterol (29-60) mg/dL TSH 3rd Generation (0.46-4.68) mIU/mL 07/11/17 Range/Units 11:11 WBC (4.5-11.0) 10^3/ul RBC (3.5-6.1) 10^6/uL Hgb (14.0-18.0) g/dL Hct (42.0-52.0) % MCV (80.0-105.0) fl MCH (25.0-35.0) pg MCHC (31.0-37.0) g/dl RDW (11.5-14.5) % Plt Count (120.0-450.0) 10^3/uL MPV (7.0-11.0) fl Gran % (50.0-68.0) % Lymph % (Auto) (22.0-35.0) % Green % (Auto) (1.0-6.0) % Eos % (Auto) (1.5-5.0) % Baso % (Auto) (0.0-3.0) % Gran # (1.4-6.5) Lymph # (Auto) (1.2-3.4) Green # (Auto) (0.1-0.6) Eos # (Auto) (0.0-0.7) Baso # (Auto) (0.0-2.0) K/mm3 Sodium (132-148) mmol/L Potassium (3.6-5.0) mmol/L Chloride (98-107) mmol/L Carbon Dioxide (21-33) mmol/L Anion Gap (10-20) BUN (7-21) mg/dL Creatinine (0.8-1.5) mg/dl Est GFR ( Amer) Est GFR (Non-Af Amer) POC Glucose (mg/dL) 83 (65-110) mg/dL Random Glucose (70-110) mg/dL Calcium (8.4-10.5) mg/dL Iron (45-180) ug/dL TIBC (261-462) ug/dL % Saturation (20-55) % Total Bilirubin (0.2-1.3) mg/dL AST (17-59) U/L ALT (7-56) U/L Alkaline Phosphatase (38-126) U/L Total Protein (5.8-8.3) g/dL Albumin (3.0-4.8) g/dL Globulin gm/dL Albumin/Globulin Ratio (1.1-1.8) Triglycerides (35-160) mg/dL Cholesterol (130-200) mg/dL LDL Cholesterol Direct (0-129) mg/dL HDL Cholesterol (29-60) mg/dL TSH 3rd Generation (0.46-4.68) mIU/mL Laboratory Results - last 24 hr 07/11/17 07/11/17 07/11/17 11:11 11:53 12:49 WBC RBC Hgb Hct MCV MCH MCHC RDW Plt Count MPV Gran % Lymph % (Auto) Green % (Auto) Eos % (Auto) Baso % (Auto) Gran # Lymph # (Auto) Green # (Auto) Eos # (Auto) Baso # (Auto) Sodium Potassium Chloride Carbon Dioxide Anion Gap BUN Creatinine Est GFR ( Amer) Est GFR (Non-Af Amer) POC Glucose (mg/dL) 83 75 96 Random Glucose Calcium Iron TIBC % Saturation Total Bilirubin AST ALT Alkaline Phosphatase Total Protein Albumin Globulin Albumin/Globulin Ratio Triglycerides Cholesterol LDL Cholesterol Direct HDL Cholesterol TSH 3rd Generation 07/11/17 07/11/17 07/11/17 14:06 15:04 16:04 WBC RBC Hgb Hct MCV MCH MCHC RDW Plt Count MPV Gran % Lymph % (Auto) Green % (Auto) Eos % (Auto) Baso % (Auto) Gran # Lymph # (Auto) Green # (Auto) Eos # (Auto) Baso # (Auto) Sodium Potassium Chloride Carbon Dioxide Anion Gap BUN Creatinine Est GFR ( Amer) Est GFR (Non-Af Amer) POC Glucose (mg/dL) 103 104 163 H Random Glucose Calcium Iron TIBC % Saturation Total Bilirubin AST ALT Alkaline Phosphatase Total Protein Albumin Globulin Albumin/Globulin Ratio Triglycerides Cholesterol LDL Cholesterol Direct HDL Cholesterol TSH 3rd Generation 07/11/17 07/11/17 07/11/17 17:03 18:02 18:56 WBC RBC Hgb Hct MCV MCH MCHC RDW Plt Count MPV Gran % Lymph % (Auto) Green % (Auto) Eos % (Auto) Baso % (Auto) Gran # Lymph # (Auto) Green # (Auto) Eos # (Auto) Baso # (Auto) Sodium Potassium Chloride Carbon Dioxide Anion Gap BUN Creatinine Est GFR ( Amer) Est GFR (Non-Af Amer) POC Glucose (mg/dL) 157 H 136 H 114 H Random Glucose Calcium Iron TIBC % Saturation Total Bilirubin AST ALT Alkaline Phosphatase Total Protein Albumin Globulin Albumin/Globulin Ratio Triglycerides Cholesterol LDL Cholesterol Direct HDL Cholesterol TSH 3rd Generation 07/11/17 07/11/17 07/11/17 20:47 22:09 23:33 WBC RBC Hgb Hct MCV MCH MCHC RDW Plt Count MPV Gran % Lymph % (Auto) Green % (Auto) Eos % (Auto) Baso % (Auto) Gran # Lymph # (Auto) Green # (Auto) Eos # (Auto) Baso # (Auto) Sodium Potassium Chloride Carbon Dioxide Anion Gap BUN Creatinine Est GFR ( Amer) Est GFR (Non-Af Amer) POC Glucose (mg/dL) 137 H 101 141 H Random Glucose Calcium Iron TIBC % Saturation Total Bilirubin AST ALT Alkaline Phosphatase Total Protein Albumin Globulin Albumin/Globulin Ratio Triglycerides Cholesterol LDL Cholesterol Direct HDL Cholesterol TSH 3rd Generation 07/12/17 07/12/17 07/12/17 01:44 05:30 05:30 WBC RBC Hgb Hct MCV MCH MCHC RDW Plt Count MPV Gran % Lymph % (Auto) Green % (Auto) Eos % (Auto) Baso % (Auto) Gran # Lymph # (Auto) Green # (Auto) Eos # (Auto) Baso # (Auto) Sodium 139 Potassium 4.1 Chloride 105 Carbon Dioxide 28 Anion Gap 11 BUN 7 Creatinine 0.7 L Est GFR ( Amer) > 60 Est GFR (Non-Af Amer) > 60 POC Glucose (mg/dL) 125 H Random Glucose 126 H Calcium 9.8 Iron 45 TIBC 249 L % Saturation 18 L Total Bilirubin 0.3 AST 34 ALT 36 Alkaline Phosphatase 66 Total Protein 7.5 Albumin 4.1 Globulin 3.4 Albumin/Globulin Ratio 1.2 Triglycerides 82 Cholesterol 234 H LDL Cholesterol Direct 155 H HDL Cholesterol 41 TSH 3rd Generation 07/12/17 07/12/17 07/12/17 05:30 05:30 05:50 WBC 13.4 H D RBC 4.10 Hgb 13.2 L Hct 38.7 L MCV 94.4 MCH 32.2 MCHC 34.1 RDW 12.5 Plt Count 273 MPV 10.0 Gran % 89.0 H Lymph % (Auto) 7.0 L Green % (Auto) 4.0 Eos % (Auto) 0.0 L Baso % (Auto) 0.0 Gran # 11.91 H Lymph # (Auto) 0.9 L Green # (Auto) 0.5 Eos # (Auto) 0.0 Baso # (Auto) 0.00 Sodium Potassium Chloride Carbon Dioxide Anion Gap BUN Creatinine Est GFR ( Amer) Est GFR (Non-Af Amer) POC Glucose (mg/dL) 121 H Random Glucose Calcium Iron TIBC % Saturation Total Bilirubin AST ALT Alkaline Phosphatase Total Protein Albumin Globulin Albumin/Globulin Ratio Triglycerides Cholesterol LDL Cholesterol Direct HDL Cholesterol TSH 3rd Generation 0.18 L 07/12/17 11:15 WBC RBC Hgb Hct MCV MCH MCHC RDW Plt Count MPV Gran % Lymph % (Auto) Green % (Auto) Eos % (Auto) Baso % (Auto) Gran # Lymph # (Auto) Green # (Auto) Eos # (Auto) Baso # (Auto) Sodium Potassium Chloride Carbon Dioxide Anion Gap BUN Creatinine Est GFR ( Amer) Est GFR (Non-Af Amer) POC Glucose (mg/dL) 109 Random Glucose Calcium Iron TIBC % Saturation Total Bilirubin AST ALT Alkaline Phosphatase Total Protein Albumin Globulin Albumin/Globulin Ratio Triglycerides Cholesterol LDL Cholesterol Direct HDL Cholesterol TSH 3rd Generation Fingerstick Blood Sugar Results: 121 Review of Systems - Cardiovascular Cardiovascular: absent: Chest Pain, Dyspnea - Respiratory Respiratory: absent: Cough, Dyspnea, Wheezing - Gastrointestinal Gastrointestinal: absent: Constipation, Diarrhea, Nausea, Vomiting - Musculoskeletal Musculoskeletal: absent: Abnormal Gait - Neurological Neurological: absent: Headaches, Tingling, Tremor, Vertigo Critical Care Progress Note - Nutrition Nutrition: Nutrition Category Date Time Status Heart Healthy Diet [DIET] Diets 07/11/17 Lunch Ordered Assessment/Plan - Assessment and Plan (Free Text) Assessment: 26 y/o with unknown past medical history presented s/p medications overdose with oxycodone, requiring multiple doses of narcan. Patient extubated yesterday , doing well today, will be transferred to med surg. Plan: Neuro: awake Alert, oriented x3 Psych psyche following 1:1 Pulm: maintain saturation >90% decadron ENT consulted Cardiac: no known cardiac history. Maintain MAP above 65%. ID: no signs of sepsis at this time Renal: monitor lytes replenish as needed Endo: maintain euglycemia GI: HHD protonix for gi prophylaxis Heme: h/h/ stable, will continue to monitor. 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 <Basilio Harp - Last Filed: 07/12/17 13:16> CCU Objective - Vital Signs / Intake & Output Intake and Output (Last 8hrs): Intake & Output 07/11/17 07/12/17 07/12/17 22:59 06:59 14:59 Intake Total 2730 2100 Output Total 1700 2500 Balance 1030 -400 Weight 262 lb Intake: IV 2250 900 Right Antecubital 750 Right Hand 1500 right outer antecubital 900 Oral 480 1200 Output: Urine 1700 2500 2-way Urethral 1700 2500 Other: # Voids 2-way Urethral 3 - Medications Active Medications: Active Medications Generic Name Dose Route Start Last Admin Trade Name Freq PRN Reason Stop Dose Admin Albuterol/Ipratropium 3 ml 07/11/17 08:36 Duoneb 3 Mg/0.5 Mg (3 Ml) Ud IH Q6H PRN Shortness of Breath Dexamethasone 4 mg 07/12/17 22:00 Decadron Inj IVP Q12 BENSON Lorazepam 1 mg 07/12/17 22:00 Ativan PO AMHS BENSON Protocol Pantoprazole Sodium 40 mg 07/12/17 10:00 07/12/17 09:55 Protonix Ec Tab PO 40 mg DAILY BENSON Administration Quetiapine Fumarate 50 mg 07/12/17 22:00 Seroquel PO HS BENSON Protocol Quetiapine Fumarate 25 mg 07/12/17 18:00 Seroquel PO BID BENSON Protocol Sertraline HCl 50 mg 07/13/17 10:00 Zoloft PO DAILY BENSON Sodium Chloride 0 ml 07/12/17 07:20 [place] Nasal [place] NS QID PRN Sinus symptoms - Patient Studies Lab Studies: Lab Studies 07/12/17 07/12/17 07/12/17 Range/Units 11:15 05:50 05:30 WBC (4.5-11.0) 10^3/ul RBC (3.5-6.1) 10^6/uL Hgb (14.0-18.0) g/dL Hct (42.0-52.0) % MCV (80.0-105.0) fl MCH (25.0-35.0) pg MCHC (31.0-37.0) g/dl RDW (11.5-14.5) % Plt Count (120.0-450.0) 10^3/uL MPV (7.0-11.0) fl Gran % (50.0-68.0) % Lymph % (Auto) (22.0-35.0) % Green % (Auto) (1.0-6.0) % Eos % (Auto) (1.5-5.0) % Baso % (Auto) (0.0-3.0) % Gran # (1.4-6.5) Lymph # (Auto) (1.2-3.4) Green # (Auto) (0.1-0.6) Eos # (Auto) (0.0-0.7) Baso # (Auto) (0.0-2.0) K/mm3 Sodium (132-148) mmol/L Potassium (3.6-5.0) mmol/L Chloride (98-107) mmol/L Carbon Dioxide (21-33) mmol/L Anion Gap (10-20) BUN (7-21) mg/dL Creatinine (0.8-1.5) mg/dl Est GFR ( Amer) Est GFR (Non-Af Amer) POC Glucose (mg/dL) 109 121 H (65-110) mg/dL Random Glucose (70-110) mg/dL Hemoglobin A1c (4.2-6.5) % Calcium (8.4-10.5) mg/dL Iron (45-180) ug/dL TIBC (261-462) ug/dL % Saturation (20-55) % Total Bilirubin (0.2-1.3) mg/dL AST (17-59) U/L ALT (7-56) U/L Alkaline Phosphatase (38-126) U/L Total Protein (5.8-8.3) g/dL Albumin (3.0-4.8) g/dL Globulin gm/dL Albumin/Globulin Ratio (1.1-1.8) Triglycerides (35-160) mg/dL Cholesterol (130-200) mg/dL LDL Cholesterol Direct (0-129) mg/dL HDL Cholesterol (29-60) mg/dL Vitamin B12 (239-931) pg/mL TSH 3rd Generation 0.18 L (0.46-4.68) mIU/mL 07/12/17 07/12/17 07/12/17 Range/Units 05:30 05:30 05:30 WBC 13.4 H D (4.5-11.0) 10^3/ul RBC 4.10 (3.5-6.1) 10^6/uL Hgb 13.2 L (14.0-18.0) g/dL Hct 38.7 L (42.0-52.0) % MCV 94.4 (80.0-105.0) fl MCH 32.2 (25.0-35.0) pg MCHC 34.1 (31.0-37.0) g/dl RDW 12.5 (11.5-14.5) % Plt Count 273 (120.0-450.0) 10^3/uL MPV 10.0 (7.0-11.0) fl Gran % 89.0 H (50.0-68.0) % Lymph % (Auto) 7.0 L (22.0-35.0) % Green % (Auto) 4.0 (1.0-6.0) % Eos % (Auto) 0.0 L (1.5-5.0) % Baso % (Auto) 0.0 (0.0-3.0) % Gran # 11.91 H (1.4-6.5) Lymph # (Auto) 0.9 L (1.2-3.4) Green # (Auto) 0.5 (0.1-0.6) Eos # (Auto) 0.0 (0.0-0.7) Baso # (Auto) 0.00 (0.0-2.0) K/mm3 Sodium (132-148) mmol/L Potassium (3.6-5.0) mmol/L Chloride (98-107) mmol/L Carbon Dioxide (21-33) mmol/L Anion Gap (10-20) BUN (7-21) mg/dL Creatinine (0.8-1.5) mg/dl Est GFR ( Amer) Est GFR (Non-Af Amer) POC Glucose (mg/dL) (65-110) mg/dL Random Glucose (70-110) mg/dL Hemoglobin A1c 5.2 (4.2-6.5) % Calcium (8.4-10.5) mg/dL Iron 45 (45-180) ug/dL TIBC 249 L (261-462) ug/dL % Saturation 18 L (20-55) % Total Bilirubin (0.2-1.3) mg/dL AST (17-59) U/L ALT (7-56) U/L Alkaline Phosphatase (38-126) U/L Total Protein (5.8-8.3) g/dL Albumin (3.0-4.8) g/dL Globulin gm/dL Albumin/Globulin Ratio (1.1-1.8) Triglycerides (35-160) mg/dL Cholesterol (130-200) mg/dL LDL Cholesterol Direct (0-129) mg/dL HDL Cholesterol (29-60) mg/dL Vitamin B12 (239-931) pg/mL TSH 3rd Generation (0.46-4.68) mIU/mL 07/12/17 07/12/17 07/11/17 Range/Units 05:30 01:44 23:33 WBC (4.5-11.0) 10^3/ul RBC (3.5-6.1) 10^6/uL Hgb (14.0-18.0) g/dL Hct (42.0-52.0) % MCV (80.0-105.0) fl MCH (25.0-35.0) pg MCHC (31.0-37.0) g/dl RDW (11.5-14.5) % Plt Count (120.0-450.0) 10^3/uL MPV (7.0-11.0) fl Gran % (50.0-68.0) % Lymph % (Auto) (22.0-35.0) % Green % (Auto) (1.0-6.0) % Eos % (Auto) (1.5-5.0) % Baso % (Auto) (0.0-3.0) % Gran # (1.4-6.5) Lymph # (Auto) (1.2-3.4) Green # (Auto) (0.1-0.6) Eos # (Auto) (0.0-0.7) Baso # (Auto) (0.0-2.0) K/mm3 Sodium 139 (132-148) mmol/L Potassium 4.1 (3.6-5.0) mmol/L Chloride 105 (98-107) mmol/L Carbon Dioxide 28 (21-33) mmol/L Anion Gap 11 (10-20) BUN 7 (7-21) mg/dL Creatinine 0.7 L (0.8-1.5) mg/dl Est GFR ( Amer) > 60 Est GFR (Non-Af Amer) > 60 POC Glucose (mg/dL) 125 H 141 H (65-110) mg/dL Random Glucose 126 H (70-110) mg/dL Hemoglobin A1c (4.2-6.5) % Calcium 9.8 (8.4-10.5) mg/dL Iron (45-180) ug/dL TIBC (261-462) ug/dL % Saturation (20-55) % Total Bilirubin 0.3 (0.2-1.3) mg/dL AST 34 (17-59) U/L ALT 36 (7-56) U/L Alkaline Phosphatase 66 (38-126) U/L Total Protein 7.5 (5.8-8.3) g/dL Albumin 4.1 (3.0-4.8) g/dL Globulin 3.4 gm/dL Albumin/Globulin Ratio 1.2 (1.1-1.8) Triglycerides 82 (35-160) mg/dL Cholesterol 234 H (130-200) mg/dL LDL Cholesterol Direct 155 H (0-129) mg/dL HDL Cholesterol 41 (29-60) mg/dL Vitamin B12 402 (239-931) pg/mL TSH 3rd Generation (0.46-4.68) mIU/mL 07/11/17 07/11/17 07/11/17 Range/Units 22:09 20:47 18:56 WBC (4.5-11.0) 10^3/ul RBC (3.5-6.1) 10^6/uL Hgb (14.0-18.0) g/dL Hct (42.0-52.0) % MCV (80.0-105.0) fl MCH (25.0-35.0) pg MCHC (31.0-37.0) g/dl RDW (11.5-14.5) % Plt Count (120.0-450.0) 10^3/uL MPV (7.0-11.0) fl Gran % (50.0-68.0) % Lymph % (Auto) (22.0-35.0) % Green % (Auto) (1.0-6.0) % Eos % (Auto) (1.5-5.0) % Baso % (Auto) (0.0-3.0) % Gran # (1.4-6.5) Lymph # (Auto) (1.2-3.4) Green # (Auto) (0.1-0.6) Eos # (Auto) (0.0-0.7) Baso # (Auto) (0.0-2.0) K/mm3 Sodium (132-148) mmol/L Potassium (3.6-5.0) mmol/L Chloride (98-107) mmol/L Carbon Dioxide (21-33) mmol/L Anion Gap (10-20) BUN (7-21) mg/dL Creatinine (0.8-1.5) mg/dl Est GFR ( Amer) Est GFR (Non-Af Amer) POC Glucose (mg/dL) 101 137 H 114 H (65-110) mg/dL Random Glucose (70-110) mg/dL Hemoglobin A1c (4.2-6.5) % Calcium (8.4-10.5) mg/dL Iron (45-180) ug/dL TIBC (261-462) ug/dL % Saturation (20-55) % Total Bilirubin (0.2-1.3) mg/dL AST (17-59) U/L ALT (7-56) U/L Alkaline Phosphatase (38-126) U/L Total Protein (5.8-8.3) g/dL Albumin (3.0-4.8) g/dL Globulin gm/dL Albumin/Globulin Ratio (1.1-1.8) Triglycerides (35-160) mg/dL Cholesterol (130-200) mg/dL LDL Cholesterol Direct (0-129) mg/dL HDL Cholesterol (29-60) mg/dL Vitamin B12 (239-931) pg/mL TSH 3rd Generation (0.46-4.68) mIU/mL 07/11/17 07/11/17 07/11/17 Range/Units 18:02 17:03 16:04 WBC (4.5-11.0) 10^3/ul RBC (3.5-6.1) 10^6/uL Hgb (14.0-18.0) g/dL Hct (42.0-52.0) % MCV (80.0-105.0) fl MCH (25.0-35.0) pg MCHC (31.0-37.0) g/dl RDW (11.5-14.5) % Plt Count (120.0-450.0) 10^3/uL MPV (7.0-11.0) fl Gran % (50.0-68.0) % Lymph % (Auto) (22.0-35.0) % Green % (Auto) (1.0-6.0) % Eos % (Auto) (1.5-5.0) % Baso % (Auto) (0.0-3.0) % Gran # (1.4-6.5) Lymph # (Auto) (1.2-3.4) Green # (Auto) (0.1-0.6) Eos # (Auto) (0.0-0.7) Baso # (Auto) (0.0-2.0) K/mm3 Sodium (132-148) mmol/L Potassium (3.6-5.0) mmol/L Chloride (98-107) mmol/L Carbon Dioxide (21-33) mmol/L Anion Gap (10-20) BUN (7-21) mg/dL Creatinine (0.8-1.5) mg/dl Est GFR ( Amer) Est GFR (Non-Af Amer) POC Glucose (mg/dL) 136 H 157 H 163 H (65-110) mg/dL Random Glucose (70-110) mg/dL Hemoglobin A1c (4.2-6.5) % Calcium (8.4-10.5) mg/dL Iron (45-180) ug/dL TIBC (261-462) ug/dL % Saturation (20-55) % Total Bilirubin (0.2-1.3) mg/dL AST (17-59) U/L ALT (7-56) U/L Alkaline Phosphatase (38-126) U/L Total Protein (5.8-8.3) g/dL Albumin (3.0-4.8) g/dL Globulin gm/dL Albumin/Globulin Ratio (1.1-1.8) Triglycerides (35-160) mg/dL Cholesterol (130-200) mg/dL LDL Cholesterol Direct (0-129) mg/dL HDL Cholesterol (29-60) mg/dL Vitamin B12 (239-931) pg/mL TSH 3rd Generation (0.46-4.68) mIU/mL 07/11/17 07/11/17 07/11/17 Range/Units 15:04 14:06 12:49 WBC (4.5-11.0) 10^3/ul RBC (3.5-6.1) 10^6/uL Hgb (14.0-18.0) g/dL Hct (42.0-52.0) % MCV (80.0-105.0) fl MCH (25.0-35.0) pg MCHC (31.0-37.0) g/dl RDW (11.5-14.5) % Plt Count (120.0-450.0) 10^3/uL MPV (7.0-11.0) fl Gran % (50.0-68.0) % Lymph % (Auto) (22.0-35.0) % Green % (Auto) (1.0-6.0) % Eos % (Auto) (1.5-5.0) % Baso % (Auto) (0.0-3.0) % Gran # (1.4-6.5) Lymph # (Auto) (1.2-3.4) Green # (Auto) (0.1-0.6) Eos # (Auto) (0.0-0.7) Baso # (Auto) (0.0-2.0) K/mm3 Sodium (132-148) mmol/L Potassium (3.6-5.0) mmol/L Chloride (98-107) mmol/L Carbon Dioxide (21-33) mmol/L Anion Gap (10-20) BUN (7-21) mg/dL Creatinine (0.8-1.5) mg/dl Est GFR ( Amer) Est GFR (Non-Af Amer) POC Glucose (mg/dL) 104 103 96 (65-110) mg/dL Random Glucose (70-110) mg/dL Hemoglobin A1c (4.2-6.5) % Calcium (8.4-10.5) mg/dL Iron (45-180) ug/dL TIBC (261-462) ug/dL % Saturation (20-55) % Total Bilirubin (0.2-1.3) mg/dL AST (17-59) U/L ALT (7-56) U/L Alkaline Phosphatase (38-126) U/L Total Protein (5.8-8.3) g/dL Albumin (3.0-4.8) g/dL Globulin gm/dL Albumin/Globulin Ratio (1.1-1.8) Triglycerides (35-160) mg/dL Cholesterol (130-200) mg/dL LDL Cholesterol Direct (0-129) mg/dL HDL Cholesterol (29-60) mg/dL Vitamin B12 (239-931) pg/mL TSH 3rd Generation (0.46-4.68) mIU/mL Laboratory Results - last 24 hr 07/11/17 07/11/17 07/11/17 12:49 14:06 15:04 WBC RBC Hgb Hct MCV MCH MCHC RDW Plt Count MPV Gran % Lymph % (Auto) Green % (Auto) Eos % (Auto) Baso % (Auto) Gran # Lymph # (Auto) Green # (Auto) Eos # (Auto) Baso # (Auto) Sodium Potassium Chloride Carbon Dioxide Anion Gap BUN Creatinine Est GFR ( Amer) Est GFR (Non-Af Amer) POC Glucose (mg/dL) 96 103 104 Random Glucose Hemoglobin A1c Calcium Iron TIBC % Saturation Total Bilirubin AST ALT Alkaline Phosphatase Total Protein Albumin Globulin Albumin/Globulin Ratio Triglycerides Cholesterol LDL Cholesterol Direct HDL Cholesterol Vitamin B12 TSH 3rd Generation 07/11/17 07/11/17 07/11/17 16:04 17:03 18:02 WBC RBC Hgb Hct MCV MCH MCHC RDW Plt Count MPV Gran % Lymph % (Auto) Green % (Auto) Eos % (Auto) Baso % (Auto) Gran # Lymph # (Auto) Green # (Auto) Eos # (Auto) Baso # (Auto) Sodium Potassium Chloride Carbon Dioxide Anion Gap BUN Creatinine Est GFR ( Amer) Est GFR (Non-Af Amer) POC Glucose (mg/dL) 163 H 157 H 136 H Random Glucose Hemoglobin A1c Calcium Iron TIBC % Saturation Total Bilirubin AST ALT Alkaline Phosphatase Total Protein Albumin Globulin Albumin/Globulin Ratio Triglycerides Cholesterol LDL Cholesterol Direct HDL Cholesterol Vitamin B12 TSH 3rd Generation 07/11/17 07/11/17 07/11/17 18:56 20:47 22:09 WBC RBC Hgb Hct MCV MCH MCHC RDW Plt Count MPV Gran % Lymph % (Auto) Green % (Auto) Eos % (Auto) Baso % (Auto) Gran # Lymph # (Auto) Green # (Auto) Eos # (Auto) Baso # (Auto) Sodium Potassium Chloride Carbon Dioxide Anion Gap BUN Creatinine Est GFR ( Amer) Est GFR (Non-Af Amer) POC Glucose (mg/dL) 114 H 137 H 101 Random Glucose Hemoglobin A1c Calcium Iron TIBC % Saturation Total Bilirubin AST ALT Alkaline Phosphatase Total Protein Albumin Globulin Albumin/Globulin Ratio Triglycerides Cholesterol LDL Cholesterol Direct HDL Cholesterol Vitamin B12 TSH 3rd Generation 07/11/17 07/12/17 07/12/17 23:33 01:44 05:30 WBC RBC Hgb Hct MCV MCH MCHC RDW Plt Count MPV Gran % Lymph % (Auto) Green % (Auto) Eos % (Auto) Baso % (Auto) Gran # Lymph # (Auto) Green # (Auto) Eos # (Auto) Baso # (Auto) Sodium 139 Potassium 4.1 Chloride 105 Carbon Dioxide 28 Anion Gap 11 BUN 7 Creatinine 0.7 L Est GFR ( Amer) > 60 Est GFR (Non-Af Amer) > 60 POC Glucose (mg/dL) 141 H 125 H Random Glucose 126 H Hemoglobin A1c Calcium 9.8 Iron TIBC % Saturation Total Bilirubin 0.3 AST 34 ALT 36 Alkaline Phosphatase 66 Total Protein 7.5 Albumin 4.1 Globulin 3.4 Albumin/Globulin Ratio 1.2 Triglycerides 82 Cholesterol 234 H LDL Cholesterol Direct 155 H HDL Cholesterol 41 Vitamin B12 402 TSH 3rd Generation 07/12/17 07/12/17 07/12/17 05:30 05:30 05:30 WBC 13.4 H D RBC 4.10 Hgb 13.2 L Hct 38.7 L MCV 94.4 MCH 32.2 MCHC 34.1 RDW 12.5 Plt Count 273 MPV 10.0 Gran % 89.0 H Lymph % (Auto) 7.0 L Green % (Auto) 4.0 Eos % (Auto) 0.0 L Baso % (Auto) 0.0 Gran # 11.91 H Lymph # (Auto) 0.9 L Green # (Auto) 0.5 Eos # (Auto) 0.0 Baso # (Auto) 0.00 Sodium Potassium Chloride Carbon Dioxide Anion Gap BUN Creatinine Est GFR ( Amer) Est GFR (Non-Af Amer) POC Glucose (mg/dL) Random Glucose Hemoglobin A1c 5.2 Calcium Iron 45 TIBC 249 L % Saturation 18 L Total Bilirubin AST ALT Alkaline Phosphatase Total Protein Albumin Globulin Albumin/Globulin Ratio Triglycerides Cholesterol LDL Cholesterol Direct HDL Cholesterol Vitamin B12 TSH 3rd Generation 07/12/17 07/12/17 07/12/17 05:30 05:50 11:15 WBC RBC Hgb Hct MCV MCH MCHC RDW Plt Count MPV Gran % Lymph % (Auto) Green % (Auto) Eos % (Auto) Baso % (Auto) Gran # Lymph # (Auto) Green # (Auto) Eos # (Auto) Baso # (Auto) Sodium Potassium Chloride Carbon Dioxide Anion Gap BUN Creatinine Est GFR ( Amer) Est GFR (Non-Af Amer) POC Glucose (mg/dL) 121 H 109 Random Glucose Hemoglobin A1c Calcium Iron TIBC % Saturation Total Bilirubin AST ALT Alkaline Phosphatase Total Protein Albumin Globulin Albumin/Globulin Ratio Triglycerides Cholesterol LDL Cholesterol Direct HDL Cholesterol Vitamin B12 TSH 3rd Generation 0.18 L Critical Care Progress Note - Nutrition Nutrition: Nutrition Category Date Time Status Heart Healthy Diet [DIET] Diets 07/11/17 Lunch Ordered Assessment/Plan - Assessment and Plan (Free Text) Plan: Patient seen and examined on rounds with resident, agree with note with following additions/exceptions: Patient is 26yo male with PMhx of depression, anxiety, polysubstance abuse admitted with opiate overdose, resp failure, s/p extubation yesterday. Currently afebrile, HD stable, comfortable in NAD, awake, alert, off bipap, no stridor, lungs clear. STABLE Cont with Duonebs PRN, FS monitoring, resume diet, GI ppx, DVT ppx, stable transfer to floor
--- NOTE | 2017-07-12 16:13 | PN ---
DATE: 07/12/2017 PULMONARY PROGRESS NOTE REFERRING PHYSICIAN: Alice Rooney MD. SUBJECTIVE: He is ambulating in the room, under one-to-one supervision. Night was unremarkable. Breathing is better. Sore throat is improved. No nausea. No vomiting, diarrhea, leg pain, leg swelling. OBJECTIVE: GENERAL: In no acute distress. VITAL SIGNS: Temperature is 98, heart rate is 58, respiratory rate is 20, blood pressure 113/43. HEENT: Moist mucous membrane. Crowded airway. Mallampati score is 4. NECK: Supple. No JVD. LUNGS: Have a fair airflow with rhonchi. HEART: S1 and S2. ABDOMEN: Soft, nontender. No organomegaly. EXTREMITIES: There is no edema. NEUROLOGICAL: Awake and alert. Follows simple command. LABORATORY DATA: Shows hemoglobin 13.2, hematocrit 38.7, WBC 13.4, platelet is 273. Sodium 139, potassium 4.1, chloride 105, bicarbonate 28, BUN is 7, creatinine 0.7, glucose 107, hemoglobin A1c 5.2, calcium is 9.8, TIBC 249, AST 34, ALT 36, alk phos is 66, albumin is 4.1, cholesterol is 234, TSH 0.18. Microbiology: Urine culture, nares culture, there is no growth. MEDICATIONS: He is on Ativan 1 mg a.m. and at bedtime, also Decadron 4 mg every 12 hours, DuoNeb every 6 hours p.r.n., nasal saline 2 sprays each nostril four times daily, Protonix 40 mg daily, Seroquel 25 mg twice a day, Seroquel also 50 mg at bedtime, Zoloft 50 mg daily. IMPRESSION AND PLAN: Drug overdose, status post respiratory failure. Drug screen has methadone, benzodiazepine and marijuana positive. Atraumatic intubation. Some swelling. He has been on steroids, which is gradually being decreased. Continue nebulizer treatment. Keep head at 45 degrees. Fall precaution. Psychiatry evaluation. Thank you and we will follow with you. Nayely Means MD
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
[2017-07-12] MEDS ORDERED: Dexamethasone 4 mg/1 ml IVP SCH (22:00)
--- NOTE | 2017-07-13 00:14 | CON ---
DATE: HIHISTORY OF PRESENT ILLNESS: Patient is a single 26-year-old male with a psychiatric history of depression; anxiety; mood lability; at least 4 prior suicide attempts, most recently in 01/2017 leading to his only psychiatric admission at [facility] on a voluntary basis; no current outpatient treatment, though patient ran out of medications Zoloft and Klonopin a few weeks ago from his hospitalization, positive history of opiate use as well as methamphetamine use, who was brought in to the emergency room by ambulance and accompanied by police after he was found unresponsive at his neighbor's home. Patient was given Narcan and responsiveness did improve after this medication was administered. Psychiatry was consulted after patient was extubated in the ICU as patient has been requesting to leave. I met with the patient at bedside and he is very talkative and thought process is over-inclusive and tangential. His eye contact is good; however, patient has inconsistent focus though he is oriented to month, year, location, and circumstances. Patient wants to leave against medical advice and the question is whether patient has a capacity to be psychiatrically cleared for this purpose. It is difficult to determine whether patient is a danger to himself, mostly because patient does not seem to be forthcoming about the circumstances leading to his current presentation and presents with conflicting statements when compared to ER report, Dr. Rooney's H&P as well as my own communication with his mother (with patient's permission). Patient indicates that he wants to leave against medical advice, so that he can go to work as he has no idea that he is being hospitalized. Patient also told nursing staff that he needs to leave against medical advice, so he could take his 5-year-old son, Tres to school. It is unclear the real reason why patient wants to leave against medical advice and it is unlikely due to his job because his collateral from his mother indicated that patient has been suspended from his job until 02/2018. Our major concern is to have patient presented to the ER. Patient does have a history of a suicide attempt in 01/2017, which led to 8 to 9 day admission to [facility]. Although, the patient was voluntarily admitted, he did not follow up with outpatient recommendation. 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 Patient reported that he had paced out his medications of Zoloft 50 mg and Klonopin 0.5 mg, so that it would last him longer. He indicates that he ran out of this medication just a couple of months ago. Patient repeatedly tells me he does not know how he ended up in the emergency room and how he became unconscious. Though he does have a history of opiate use, he denies using opiates for over 2 years and basically states that he has been clean from heroin and methamphetamines for over 2 years. Patient does not offer a reasonable explanation why his urine is positive for methadone, but does admit that he does smoke marijuana here and there recreationally. Unreasonably, patient indicated that he feels that on the day of his presentation, his mother may have put methadone in a glass of wine that she was pushing on him and seems to insinuate that she was attempting murder in this respect. She cannot give me a reasonable explanation why she would attempt murder when she was one of the individuals to help get him medical attention when he was found unconscious. He indicates that on the day of his presentation, he was at his neighbor, Yumiko's, home and left his mother's home which was right next door because he got into a conflict with his mother and the next thing he knew he was unconscious. Patient denies that he took any illicit substances, denies that he continued drinking when he was at neighbor, Yumiko's home and denies having any suicidal or homicidal thoughts. Patient provided consent for the psychiatrist to contact his mother for collateral information as the reason for patient's presentation is wholly unknown and he does have a significant psychiatric history of suicide attempts a few months ago. He also presents with paranoia regarding his mother. I called his mother, Nemo, this morning at [phone] and Nemo provided information regarding patient's behavior in last few weeks. Patient's mother has a lot of concern about patient's functioning and well being as he has been increasingly erratic, agitated, argumentative, and angry in the last 3 weeks. Patient's mother reports that he has multiple stressors and that he is only depressed. She indicates that he was suspended for 6 months without pay until 02/2017 because his attendance has been erratic. Patient was also arrested few weeks ago due to unruly behavior and resisting arrest and he was found with marijuana on him. Patient was inebriated at times and he has court this coming Monday. Patient has also been arguing with the mother of his 5-year-old son more as she is trying to move in with her new boyfriend. Mother indicated they had a very good relationship and that he has been living with her for last year, although patient told this provider that he has only been living with her for only last week. Patient's mother indicates that she feels that he might be using drugs again; however, she also has concerns that presentation was secondary to his suicide attempt and she does not feel that he is safe for discharge. Patient's mother indicates on the day of his presentation, he had been arguing and yelling and going from the neighbor's house to her home back and forth during the day to yell at her and call her names and "generally be nasty." She believes that he found his neighbor, Sheila, liquid methadone and took some, but however, she is unsure if this was a suicide attempt or this was an attempt to get high or both. Of note, patient's mother reports that she has to hide her own medication so that her son does not take them. She feels that he is too unpredictable, considering his current stressors, lack of psychiatric treatment and the fact that he is not currently stabilized on any psychiatric medication. She is in agreement with recommendations for hospitalization involuntarily if he is not willing to sign involuntarily. Please note that nursing staff called this provider while provider was driving on the road and spoke with floor right away as soon as I could safely call back. I had recommended that patient being given a one-time dose of Seroquel 25 mg and a one-time dose of Ativan 1 mg as patient was breathless and demanding to be discharged. 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 I spoke with nursing regarding his ability to be psychiatrically cleared and basically stated that patient was not psychiatrically cleared in this respect and his insight and judgement are poor. PHYSICAL EXAMINATION VITAL SIGNS: Reviewed as well as relevant lab work and of note, methadone and cannabinoids were positive on 07/10/2017 when patient arrived. RELEVANT PSYCHIATRIC MEDICATIONS: Patient was not on any psychiatric medications when I met with him this morning. Although, he did receive Xanax 1 dose yesterday of just 0.25 mg and as noted, patient was given Narcan 0.4 mg IV one-time dose because he was obtunded in the ER on 07/11/2017. PSYCHIATRIC HISTORY: Patient reports that he has been in treatment since the age of 19 for depression; however, he is not currently on any psychiatric treatment because he did not have insurance coverage at his job; however, insurance coverage did start in 04/2017 for him. Patient reports 4 prior suicide attempts, the first time at 12 years old, the most recent one led to his admission to [facility] on a voluntary basis. Patient tried to hang himself. Mother accompanied him to [facility] where he was hospitalized for 89 days and per patient, was discharged on Zoloft 50 mg and Klonopin 0.5 mg 2 to 3 times a day p.r.n. Patient tried to stretch his medication out; however, ran out of it a few months ago. Patient reports that he has also tried Xanax in the past, which was beneficial as well as Neurontin which was not beneficial. SOCIAL HISTORY: Patient was born and raised in [place]. He has been living with his mother, Nemo, for the past year. Her number is [phone], although patient indicated that he only moved in with her about a week ago. Patient graduated from high school. He is single. He has a 5-year-old son named Brodie Myers who he shares custody with the mother of his child. Patient has Brodie on the weekends and both him and his mother take care of him. 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 Mother indicates that he was suspended recently for 6 months without pay due to poor attendance at work. Patient reports the history of opiate dependency as well as methamphetamine dependency. He indicates that he has been taking heroin intranasally, denies IV use. Patient reports that he has been clean for over 2 years; however, UDS is positive for methadone and patient is not likely forthcoming about his current usage. Patient does report that he does use marijuana on occasions, positive for marijuana as well. Patient denies regular alcohol use; however, mother feels that patient has been drinking alcohol in increased frequency in the last few weeks. Of note, patient was arrested 2 weeks ago for disorderly conduct and was inebriated and had marijuana on him. He is scheduled for courts next Monday. IMPRESSION: Mood disorder not otherwise specified, anxiety disorder not otherwise specified. Consider major depressive disorder, severe. Consider disorder on the bipolar spectrum as patient appears labile and with poor impulse control. Patient has a history of opiate use disorder, likely relapse; marijuana use disorder; rule out borderline personality disorder, which can be contributing to patient's debility as well as his inconsistent statements, which are self-building. RECOMMENDATIONS: At this time, patient is not psychiatrically cleared to leave AMA. Patient has not been forthcoming and has been contradictory regarding the circumstances that led to his hospitalization. Mother also has strong concerns about patient's decompensation in the last 3 weeks and major stressors including suspension from job, likely drug use, that his mother of his son moving in with a new boyfriend, and recent arrest 2 weeks ago. Patient does have a history of 4 prior suicide attempts, most recently was just a few months ago in 01/2017. Patient is not currently in psychiatric treatment and is not currently stabilized on his psychiatric medications. Patient's close family member who was with him at the time of presentation expresses her concerns and this provider herself also has concerns due to patient's paranoia about mother trying to kill him. It does not appear that patient is willing to sign involuntarily to the psychiatric unit and once he is medically cleared, should be screened for involuntary transfer to [facility] if he continues to refuse voluntary treatment. I have started Seroquel 25 mg b.i.d. and 50 mg at bedtime due to patient's history of aggression, irritability, and lability per his mother and his restlessness in the intensive care unit. I have also started Zoloft 50 mg daily, which patient reported was beneficial for him in the past for depression and as well as Ativan 1 mg in the morning and at bedtime to help him with mood control as well as anxiety while in the unit. Psychiatry will continue follow the patient. Next follow up will be on 07/13/2017, on . Mynor Clark MD
[2017-07-13 07:12] LABS: BASO # 0.01 K/mm3 (0.0-2.0); BASO % 0.1 % (0.0-3.0); EOS % 0.2 % (1.5-5.0); GRAN # 7.43 (1.4-6.5); GRAN % 65.9 % (50.0-68.0); HEMOGLOBIN 12.7 g/dL (14.0-18.0); LYMPH # 2.8 (1.2-3.4); MEAN CELL VOLUME 96.4 fl (80.0-105.0); MEAN CORPUSCULAR HEMOGLOBIN 32.2 pg (25.0-35.0); MEAN CORPUSCULAR HGB CONC 33.4 g/dl (31.0-37.0); MEAN PLATELET VOLUME 9.8 fl (7.0-11.0); MONO % 8.8 % (1.0-6.0); RBC 3.94 10^6/uL (3.5-6.1); RED CELL DISTRIBUTION WIDTH 13.1 % (11.5-14.5); WHITE BLOOD COUNT 11.3 10^3/ul (4.5-11.0)
[2017-07-13 07:19] LABS: ALB/GLOB RATIO 1.1 (1.1-1.8); ALBUMIN 3.7 g/dL (3.0-4.8); ALT/SGPT 38 U/L (7-56); AST/SGOT 18 U/L (17-59); BLOOD UREA NITROGEN 10 mg/dL (7-21); GFR AFRICAN-AMERICAN > 60; GFR NON-AFRICAN AMERICAN > 60
[2017-07-13] MEDS ORDERED: Benzocaine/Menthol (Cepacol) Lozenge MT PRN (11:15)
[2017-07-13] MEDS: Pantoprazole 40 mg EC Tab PO SCH (11:20)
--- NOTE | 2017-07-13 13:58 | PN ---
DATE: FOLLOWUP NOTE SUBJECTIVE: In short, the patient is a 26-year-old with reported history of polysubstance abuse, possible history of mental illness. The patient was admitted into ICU status post overdose, rule out intentional versus unintentional overdose. The patient received Narcan in the scene. The patient was not able to protect his airways that is why the patient was intubated on 07/10/2017 and extubated successfully on 07/11/2017. Psych consult was called for evaluation of possible suicidal attempt and mood symptoms. The patient was seen initially by Dr. Clark yesterday on 07/12/2017. Notes reviewed. Appreciated impression by Dr. Clark was mood disorder, NOS; anxiety disorder; history of opioid use disorder. Seroquel was started 25 mg twice a day and 50 at the nighttime for mood stabilization as well as Zoloft. The patient was seen and examined today on the medical side. The patient presented to be in manic stage. The patient was talking loudly, was providing inconsistent stories. As per staff report, the patient was agitated the other day. He required security intervention. The patient was paranoid, was saying that his son was kidnapped. Nurse forest fire prevention manager called the patient's ex-partner and son was in safe place. The patient was seen by this teletypewriter installer at the morning time. The patient presented to be in manic stage as this teletypewriter installer mentioned above. The patient was loud, overproductive speech. The patient reported to feel "fantastic." The patient reported that he does not remember the circumstances of his admission to the ICU as well as on the medical floor. The patient reported that he was evicted from the house where he used to live with his 5-year-old son and he moved in into his mother's house who claimed to be "alcoholic." The patient reported that on , the patient's mother woke him and handed him a glass of wine. The patient had no reasonable explanation why mother was offering him wine at the morning time and wake him. The patient said he refused to drink wine. Later on, he found lying in the refrigerator and had a sip and he lost his consciousness. Right now, the patient feels that his mother poisoned him. The patient obviously paranoid and guarded. The patient denied using any drugs, but as per history in the emergency room, it is clear that the patient overdosed on Percocet and alcohol. The patient was not forthcoming with the information. At the same time, the patient denied that he wanted to end up his life. Denied intentional overdose. This teletypewriter installer reviewed vital signs: Temperature 97.4, pulse is 46, blood pressure 122/71, respirations 20, oxygen saturation is 95. Medications reviewed. Tylenol, DuoNeb, dexamethasone, Haldol 4 mg IM every 6 hours p.r.n. for agitation, Ativan 1 mg IV push every 6 hours as needed for agitation. Ativan 1 mg twice a day scheduled. The patient is on Protonix, Seroquel 25 mg twice a day and 50 mg at the nighttime, Zoloft 50 mg daily. Labs reviewed. WBC cells 11.3 today, hemoglobin 12.7, hematocrit 38. Blood gas reviewed. Most recent from yesterday, pCO2 of 60, which is high. Chemistry reviewed, seems to be within normal limits. Most recent was today. Toxicology was positive for methadone, benzodiazepines as well as cannabis. MENTAL STATUS EXAMINATION: As this teletypewriter installer described above, the patient is in manic stage, appears to be confused. Intense eye contact. Mood described as "fantastic." Affect was constricted. Mood congruent. Thought process seems to be circumstantial. Thought content, the patient denied visual, auditory or tactile hallucinations, but obviously the patient presented to be paranoid, had feeling that his mother tried to poison him. At the same time, as per note from yesterday, the patient was agitated, was feeling that his son was kidnapped, which was not true and the patient's son is in a safe place with his biological mother. Insight and judgment seems to be impaired. Impulses are unpredictable. IMPRESSION: At present moment, the patient obviously in manic stage with psychotic symptoms, agree with the Seroquel, p.r.n. medication as well, Haldol, Ativan as well as needed. This teletypewriter installer offered the patient psychiatric admission. The patient declined that offer. Considering the fact that the patient is very paranoid, still has episodes of confusion, the patient required further evaluation and stabilization. As per medical team, the patient is waiting for speech and swallow evaluation, ENT evaluation because of the swelling of his throat, but the patient is able to eat and observed eating with good appetite. There are inconsistent stories. The patient is paranoid right now, loud, in manic stage. Feels that his mother poisoned him as well as his son was kidnapped, delusions. The patient required further hospitalization. [facility] will be recommended for screening. Discussed case with Vp Revenue Cycle and Case Management. should be involved because the patient claimed to the primary caregiver for his 5-year-old son. We will follow up and advise accordingly. Thank you very much for letting me participate in the care of your patient. Daylin Clark MD
--- NOTE | 2017-07-13 16:14 | PN ---
DATE: 07/13/2017 PULMONARY PROGRESS NOTE REFERRING PHYSICIAN: Alice Rooney MD. SUBJECTIVE: He is walking around in the hallway, under one-to-one supervision, still has some hallucinations, being evaluated by Psychiatry team for possible involuntary psych stay. Pulmonary point of view, his throat is better. Still has some soreness. Not short of breath. No wheezing. No nausea, no vomiting, no diarrhea. No leg pain or leg swelling. PHYSICAL EXAMINATION: GENERAL: In no acute distress. VITAL SIGNS: Temperature is 98, heart rate is 46, respiratory rate is 20, blood pressure 122/71, pulse ox 95% on room air. HEENT: Moist mucous membranes. Crowded airway. NECK: Supple. No JVD. LUNGS: Have a fair airflow with rhonchi. HEART: S1, S2. ABDOMEN: Soft and nontender. No organomegaly. EXTREMITIES: No edema. NEUROLOGIC: Awake and alert. Follows simple command. MEDICATIONS: He is on Ativan 1 mg every 6 hours p.r.n., Decadron 4 mg every 12 hours, DuoNeb every 6 hours p.r.n., Haldol 4 mg every 6 hours p.r.n., nasal saline one spray each nostril four times a day, Protonix 40 mg daily, Seroquel 25 mg twice a day, Tylenol p.r.n., and Zofran p.r.n. basis. LABORATORY DATA: Shows hemoglobin 12.7, hematocrit 38, WBC 11.3, platelet is 268. Sodium 142, potassium 4.1, chloride 106, bicarbonate 30, BUN 10, creatinine 0.8, glucose 97, calcium is 10. AST 18, ALT 38, alkaline phosphatase is 57, albumin is 3.7. Microbiology, nares and urine culture have no growth. IMPRESSION AND PLAN: Drug overdose, status post respiratory failure, extubated. Has methadone, benzodiazepine, and marijuana positive in the urine. Has some trauma to throat, been on steroids, has a history of major depression. Case discussed with Dr. Rooney. Pulmonary point of view, he is medically stable. We will discontinue his steroids. May be write some Cepacol lozenges for sore throat. If Psychiatry the patient could be discharged, as an outpatient, he should get sleep study and PFT. Thank you and we will follow with you. Nayely Means MD
--- NOTE | 2017-07-13 19:20 | CARD ---
APPROVED REPORT EKG Measurement Heart [id number] <Conclusion> Normal sinus rhythm Incomplete right bundle branch block Minimal voltage criteria for LVH, may be normal variant Borderline ECG
[2017-07-13 22:28] VITALS: RESP 18; TEMP 97; O2SAT 98
--- NOTE | 2017-07-14 03:55 | PN ---
DATE: SUBJECTIVE: Patient was seen and examined in his room, but most of the time, he is walking around, still under supervision of one to one, anxious, still hallucinating. No shortness of breath. No coughing. No nausea, vomiting, or diarrhea. Complaining about body aches. Wants Percocet, but we are trying to give Tylenol. Dr. Daylin Clark, psychiatrist, is on the case. Length of time discussion done with Dr. Daylin Clark and product tester Dr. Means. PHYSICAL EXAMINATION: VITAL SIGNS: Temperature 98, heart rate 46, respiratory rate 20, blood pressure 122/71, pulse oximetry 95% on room air. HEENT: Head normocephalic, atraumatic. Eyes, PERRLA, extraocular movements intact, conjunctivae clear. Nose patent. Mucous membranes moist. NECK: Supple. No carotid bruit, JVD, or thyromegaly. LUNGS: Fair air flow with rhonchi. HEART: S1 and S2 positive. ABDOMEN: Soft, nontender. No organomegaly. EXTREMITIES: No edema. No cyanosis. NEUROLOGIC: The patient is awake and alert. Follows simple commands. MEDICATIONS: Ativan, Decadron, DuoNeb, Haldol, nasal saline, Protonix, Seroquel, Tylenol, and Zofran. LABORATORY DATA: Hemoglobin 12.7, hematocrit 38, white blood cells 11.3, platelets 268 . Sodium 142, potassium 4.1, BUN 10, creatinine 0.8. AST 18, ALT 38. ASSESSMENT AND PLAN: Mr. Jr Myers is a 26-year-old male, who came in to [facility] with drug overdose, status post respiratory failure, was intubated, now extubated. Has methadone, benzodiazepine, marijuana positive in the urine. Has some trauma to the throat even on steroid. Has history of major depression. Discussion done with Dr. Daylin Clark and Dr. Means. According to Dr. Means, pulmonary point of view, patient is medically stable. Dr. Means discontinued the steroids. I will give some Cepacol lozenges for sore throat or maybe warm salt water gargles. Rule out obstructive sleep apnea syndrome. Medically patient is cleared to go to Psychiatry. I reviewed Dr. Daylin Clark's long report. According to Dr. Clark, patient is in manic stage with psychotic symptoms. Agree with Seroquel p.r.n. Medications Haldol, Ativan as well as needed. Psychiatry has offered the patient psychiatric admission. Patient declined that offer. Considering the fact that the patient is very paranoid, still having episodes of confusion, patient need further evaluation and stabilization. Gastrointestinal and deep vein thrombosis prophylaxis. Repeat labs. We will follow up. Alice Rooney MD MTDD
[2017-07-14 08:36] VITALS: BP 133/63
[2017-07-14] MEDS: Pantoprazole 40 mg EC Tab PO SCH (10:09)
[2017-07-14 12:30] VITALS: PULSE 62
--- NOTE | 2017-07-14 13:25 | CP.PCM.PN ---
Subjective - Date & Time of Evaluation Date of Evaluation: 07/14/17 Time of Evaluation: 13:23 - Subjective Subjective: pt seen and examined, doing well hoarseness improved. Mild neck pain, minimal hoarseness Review of Systems - EENT Eyes: As Per HPI, UNREMARKABLE Ears: As Per HPI Nose/Mouth/Throat: As Per HPI, Hoarsness, Sore Throat - Cardiovascular Cardiovascular: As Per HPI - Respiratory Respiratory: As Per HPI, UNREMARKABLE - Gastrointestinal Gastrointestinal: As Per HPI - Neurological Neurological: As Per HPI - Psychiatric Psychiatric: As Per HPI Objective - Vital Signs/Intake and Output Vital Signs (last 24 hours): Temp Pulse Resp BP Pulse Ox 97 F L 62 18 133/63 98 07/14/17 06:00 07/14/17 12:00 07/14/17 06:00 07/14/17 06:00 07/14/17 06:00 - Medications Medications: Current Medications Acetaminophen (Tylenol 325mg Tab) 650 mg PO Q6H PRN PRN Reason: Pain, moderate (4-7) Last Admin: 07/14/17 10:09 Dose: 650 mg Albuterol/Ipratropium (Duoneb 3 Mg/0.5 Mg (3 Ml) Ud) 3 ml IH Q6H PRN PRN Reason: Shortness of Breath Atorvastatin Calcium (Lipitor) 10 mg PO DIN [facility] Benzocaine/Menthol (Cepacol Sore Throat) 1 [place] MT Q2H PRN PRN Reason: Sore Throat Last Admin: 07/14/17 04:45 Dose: 1 [place] Haloperidol Lactate (Haldol) 4 mg IM Q6H PRN; Protocol PRN Reason: Agitation Lorazepam (Ativan) 1 mg PO AMHS [facility] PRN Reason: Protocol Last Admin: 07/14/17 10:08 Dose: 1 mg Lorazepam (Ativan) 1 mg IVP Q6H PRN; Protocol PRN Reason: Agitation Last Admin: 07/12/17 16:50 Dose: 1 mg Meloxicam (Mobic) 15 mg PO ONCE ONE Stop: 07/14/17 16:36 Pantoprazole Sodium (Protonix Ec Tab) 40 mg PO DAILY [facility] Last Admin: 07/14/17 10:09 Dose: 40 mg Quetiapine Fumarate (Seroquel) 50 mg PO HS [facility] PRN Reason: Protocol Last Admin: 07/13/17 23:44 Dose: 50 mg Quetiapine Fumarate (Seroquel) 25 mg PO BID [facility] PRN Reason: Protocol Last Admin: 07/14/17 10:09 Dose: 25 mg Sodium Chloride ([place] Nasal [place]) 0 ml NS QID PRN PRN Reason: Sinus symptoms - Labs Labs: 07/13/17 06:30 07/13/17 06:30 - Constitutional Appears: Well, Non-toxic - Head Exam Head Exam: ATRAUMATIC, NORMAL INSPECTION, NORMOCEPHALIC - Eye Exam Eye Exam: EOMI, Normal appearance Pupil Exam: NORMAL ACCOMODATION, PERRL - ENT Exam ENT Exam: Mucous Membranes Moist, Normal Exam, Normal Oropharynx, TM's Normal Bilaterally - Neck Exam Neck Exam: Full ROM Assessment and Plan (1) Substance abuse Status: Acute (2) Cellulitis Status: Acute (3) Other voice and resonance disorders Status: Acute (4) Laryngeal edema Status: Acute - Assessment and Plan (Free Text) Plan: Stable from ENT standpoint. will monitor. continue saline
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
--- NOTE | 2017-07-14 23:39 | PN ---
DATE: 07/14/2017 PULMONARY PROGRESS NOTE REFERRING PHYSICIAN: Alice Rooney MD SUBJECTIVE: He is ambulating in the room under one-to-one supervision, being transferred to Psychiatry Unit at [facility]. His throat is much better. No sore throat, no stridor, no cough. No nausea, no vomiting, no diarrhea. No leg pain or leg swelling. PHYSICAL EXAMINATION: GENERAL: In no acute distress. VITAL SIGNS: Temperature is 98, heart rate is 62, respiratory rate is 18, blood pressure 133/63, pulse ox 98% on room air. HEENT: Moist mucous membrane. Crowded airway. Mallampati score is 4. NECK: Supple. No JVD. LUNGS: Have a fair airflow with rhonchi. HEART: S1 and S2. ABDOMEN: Soft, nontender. No organomegaly. EXTREMITIES: There is no edema. NEUROLOGICAL: Awake and alert. Follows simple command. MEDICATIONS: Reviewed. No new change in medication reported. LABORATORY DATA: Reviewed blood sugar this morning was 61. IMPRESSION AND PLAN: Status post drug overdose with methadone, benzodiazepine, marijuana, was intubated, atraumatic intubation, may have sleep apnea syndrome, major depression, still having hallucinations. Pulmonary point of view, doing well. His steroid was discontinued yesterday, seen by Dr. Brunson from ENT today. Endoscopy shows stable finding. He was medically cleared to be discharged to the Psychiatry Unit, may continue Cepacol lozenges p.r.n. basis for sore throat. Also, will suggest sleep apnea precaution. Will need sleep study upon discharge from the hospital as outpatient. The patient expressed understanding and will follow up. Thank you and we will follow with you. Nayely Means MD
--- NOTE | 2017-07-15 01:22 | CON ---
DATE: HISTORY OF PRESENT ILLNESS: The patient is a 26-year-old white male with a history of polysubstance abuse including heroin and amphetamine, and likely relapse as well as a psychiatric history of depression and anxiety, rule out bipolar disorder, who is currently on the medical floor status post overdose, rule of intentional versus unintentional, awaiting involuntary transfer to the [facility] for psychiatric stabilization. I met with patient today, Dr. Clakr met with patient yesterday, and I reviewed the note. Dr. Clark also felt that patient required screening, which is why patient is currently awaiting involuntary transfer, as the screener also felt that the patient required psychiatric stabilization. The patient continues to be loud, boisterous, with overproductive speech and tells me that he is "feeling spectacular." He reports poor sleep and denies any depression, suicidal thoughts or homicidal thoughts. Patient denies hallucinations, does not appear to be obviously hallucinating. He is impulsive and demonstrates flights of ideas and requires one-to-one due to unpredictability of behavior. Patient has been taking his medications on the unit and does not appear to be problematic in this respect. He remains paranoid regarding his mother and demonstrates poor insight and judgment regarding his diagnoses and need for stabilization. VITAL SIGNS: Were reviewed as well as recent labs. MEDICATION: Haldol 4 mg IM every 6 hours p.r.n., Ativan 1 mg IV every 6 hours p.r.n. to be given with Haldol, Ativan 1 mg a.m. and at bedtime, Seroquel 25 mg p.o. b.i.d. and 50 mg at bedtime, and Zoloft 50 mg daily. IMPRESSION: Mood disorder not otherwise specified, likely bipolar spectrum disorder as patient appears to be elevated and becoming more elevated, and appears more elevated than his presentation with me two days ago. History of polysubstance dependence on opiates and methamphetamine, likely relapse on opiates prior to admission, rule out substance-induced mood disorder. RECOMMENDATION: We will continue with current medication of Seroquel 25 mg p.o. b.i.d. and 50 mg at bedtime for mood control. We will also put him on Ativan 1 mg a.m. and at bedtime to further help with mood control, we will also continue with Haldol and Ativan p.r.n. for agitation. Patient appears to be significantly elevated and possibly in a manic episode worsen the symptoms, even precipitate it. Psychiatry will continue to follow up with patient on the medical floor until he is ultimately transferred to [facility]. Patient currently awaits a bed. Next followup will be tomorrow, 07/15/[address] Clark. Mynor Clark MD
== END 2017-07-14 15:39 | disposition home or self-care (01) | DRG 917 ==
LOC: ED 16:02 → ERH 21:28 → ICU 07-11 00:09 → OBSVTOIN 07-11 10:42 → 5RNO 07-12 11:08
PROVIDERS: ADMIT Internal Medicine; ATTEND Internal Medicine
PROC: 0BH17EZ Insertion of Endotracheal Airway into Trachea, Via Natural or Artificial Opening (ICD-10-PCS; principal; 2017-07-11)
PROC: 5A1935Z Respiratory Ventilation, Less than 24 Consecutive Hours (ICD-10-PCS; 2017-07-11)
PROC: 5A09357 Assistance with Respiratory Ventilation, Less than 24 Consecutive Hours, Continuous Positive Airway Pressure (ICD-10-PCS; 2017-07-11)
DX: T40.3X1A Poisoning by methadone, accidental (unintentional), initial encounter (principal); T42.4X1A Poisoning by benzodiazepines, accidental (unintentional), initial encounter; J96.90 Respiratory failure, unspecified, unspecified whether with hypoxia or hypercapnia; F30.2 Manic episode, severe with psychotic symptoms; J38.4 Edema of larynx; F41.9 Anxiety disorder, unspecified; F39 Unspecified mood [affective] disorder; E16.2 Hypoglycemia, unspecified; R49.8 Other voice and resonance disorders; D64.9 Anemia, unspecified; E83.39 Other disorders of phosphorus metabolism; F12.10 Cannabis abuse, uncomplicated; R45.1 Restlessness and agitation; F17.210 Nicotine dependence, cigarettes, uncomplicated; E66.9 Obesity, unspecified; Z68.37 Body mass index [BMI] 37.0-37.9, adult; Z91.14 Patient's other noncompliance with medication regimen; Z91.5 Personal history of self-harm